=== PATIENT | female | born 1995 | race African-American/Black ===

== ENCOUNTER 2022-05-15 16:54 | Emergency (ER) | payer SELFPAY ==
[2022-05-15 17:27] VITALS: BP 119/68; PULSE 100; RESP 18; TEMP 36.3; O2SAT 100; BMI 50.1
== END 2022-05-15 20:10 | disposition left against medical advice (07) ==
LOC: ED 20:21
DX: Z53.21 Procedure and treatment not carried out due to patient leaving prior to being seen by health care provider (principal)
CPT/HCPCS: 99281

== ENCOUNTER 2022-06-19 08:48 | Emergency (ER) | payer SELFPAY ==
[2022-06-19 08:54] VITALS: BP 120/79; PULSE 81; RESP 18; TEMP 36.6; O2SAT 98; BMI 50.1
--- NOTE | 2022-06-19 09:20 | ED.GENADULT ---
HPI - General Adult General Chief complaint: Unspecified Complaint, Adult Stated complaint: nausea,vomiting,chills,coughing Time Seen by Provider: 06/19/22 09:17 History of Present Illness HPI narrative: This 26-year-old female comes in reporting symptoms that began a couple days ago. She said it was started with nausea and vomiting and some chills. She did not measure a fever. Yesterday she developed nasal congestion and a cough. She comes in stating that she wants to be tested for COVID and influenza and also for possibility of . Related Data Home Medications Medication Instructions Recorded Confirmed No Known Home Medications 05/15/22 05/15/22 Allergies Allergy/AdvReac Type Severity Reaction Status Date / Time shellfish derived Allergy Anaphylaxis Verified 05/15/22 17:32 Review of Systems Status of ROS: Reports: 10 or more systems reviewed and unremarkable except as noted in History and below Narrative: Constitutional: No fevers, no weight gain or loss. Eyes: No discharge. No vision changes. HENT: No congestion, no sore throat, no ear pain. Cardiovascular: No chest pain, no palpitations. Respiratory: No shortness of breath, no wheezes. Nasal congestion and cough. Gastrointestinal: No abdominal pain, no diarrhea. She has had some nausea with vomiting starting a couple days ago and occurring yet today. Genitourinary: No dysuria, no hematuria. Musculoskeletal: Normal range of motion. Skin: No rashes, no pruritis. Neurological: No dizziness, weakness, sensory change, speech change. Endo/Heme/Allergies: No bruising or bleeding. No polydipsia. Pysch: no suicidality, no anxiety, no insomnia. All other systems reviewed and are negative. PFSH [facility] Social History Smoking Status: Unknown if ever smoked Do you use any of these nicotine containing products: None How often do you have a drink containing alcohol: never AUDIT-C Alcohol total score: 0 Non-prescribed substance use: denies use Exam Narrative: Exam Narrative: Constitutional: Well-developed, well-nourished, no acute distress. HEENT: Normocephalic, atraumatic. Neck: Normal range of motion. Nontender. Supple. Heart: Regular. No murmurs. Normal rate. Intact distal pulses. Lungs: Clear to auscultation. No chest discomfort. No wheezes, rhonchi, or rales. Abdomen: Normal bowel sounds. Nontender. No rebound tenderness. Genitalia: Deferred. Back: No midline tenderness. Normal range of motion. Extremities: Normal range of motion. No injury. Skin: Intact. No rash. Warm. No erythema or pallor. Neurologic: No altered sensation. No weakness. Alert and oriented. Psychiatric: No suicidality. No anxiety or depression. No insomnia. Nursing notes and vitals signs are reviewed. Const: Vital Signs, click to edit/add: Vital Signs - 24 hr 06/19/22 08:54 Temperature 97.8 F Pulse Rate [Right Pulse Oximeter] 81 Respiratory Rate 18 Blood Pressure [Ri ght Upper Arm] 120/79 Pulse Oximetry 98 Oxygen Delivery Me thod Room Air Course Vital Signs Vital signs: Initial Vital Signs Temperature 97.8 F 06/19/22 08:54 Temperature Source Temporal Artery Scan 06/19/22 08:54 Pulse Rate 81 06/19/22 08:54 Respiratory Rate 18 06/19/22 08:54 Blood Pressure 120/79 06/19/22 08:54 Blood Pressure Mean 92 06/19/22 08:54 Blood Pressure Position Sitting 06/19/22 08:54 Pulse Oximetry 98 06/19/22 08:54 Oxygen Delivery Method 06/19/22 08:54 Vital Signs Temperature 97.8 F 06/19/22 08:54 Pulse Rate 81 06/19/22 08:54 Respiratory Rate 18 06/19/22 08:54 Blood Pressure 120/79 06/19/22 08:54 Pulse Oximetry 98 06/19/22 08:54 Oxygen Delivery Method 06/19/22 08:54 Temperature 97.8 F 06/19/22 08:54 Pulse Rate 81 06/19/22 08:54 Respiratory Rate 18 06/19/22 08:54 Blood Pressure 120/79 06/19/22 08:54 Pulse Oximetry 98 06/19/22 08:54 Oxygen Delivery Method 06/19/22 08:54 Medical Decision Making MDM Narrative Medical decision making narrative: This patient comes in with symptoms including nausea and vomiting and now has nasal congestion and occasional cough. Her urine test is negative. COVID and influenza testings also returned with negative results. This patient likely has some viral syndrome. Her vital signs are in normal range. I encouraged her to use [id number] medicines as needed and directed. Lab Data Labs: Lab Results 06/19/22 06/19/22 Range/Units 09:07 09:15 HCG, Qual Negative (Negative) SARS-CoV-2 (PCR) Negative SARS-CoV-2 (Negative) Influenza Type A (PCR) Negative PCR FLU A (Negative) Influenza Type B (PCR) Negative PCR FLU B (Negative) Discharge Plan Discharge Clinical Impression: Upper respiratory infection, viral Patient Disposition: Home, Self-Care Condition: Stable Additional Instructions: Use [id number] medicines as needed and directed. Follow up with MD or return if worsening symptoms occur. Prescriptions: No Action No Known Home Medications Follow Up/Referrals: Provider,Not a Local [Primary Care Provider] - Stand Alone Forms: [employer] Info Instructions
[2022-06-19] MEDS: ONDANSETRON ODT 4 MG TAB PO (09:35)
[2022-06-19 09:37] LABS: HCG Qualitative* Negative (Negative)
[2022-06-19 09:59] LABS: PCR FLU A Negative PCR FLU A (Negative); PCR FLU B Negative PCR FLU B (Negative); SARS PCR* Negative SARS-CoV-2 (Negative)
== END 2022-06-19 10:38 | disposition home or self-care (01) ==
PROVIDERS: Emergency Provider Emergency Medicine Emergency Medical Services
DX: J06.9 Acute upper respiratory infection, unspecified (principal)
CPT/HCPCS: 84703; 87631; 99283; 99284; A9270

== ENCOUNTER 2022-09-28 05:24 | Emergency (ER) | payer BC, SELFPAY ==
[2022-09-28 05:29] VITALS: BP 136/88; PULSE 83; RESP 18; TEMP 36.1; O2SAT 99; BMI 48.8
--- NOTE | 2022-09-28 05:34 | ED.GENADULT ---
HPI - General Adult General Time Seen by Provider: 05:34 Date Seen: 09/28/22 Chief complaint: Unspecified Complaint, Adult Stated complaint: Rectal pain Time Seen by Provider: 09/28/22 05:29 Source: patient and RN notes reviewed Mode of arrival: ambulatory Limitations: no limitations History of Present Illness HPI narrative: 19-year-old female who comes in today with concern for a painful hemorrhoid. She has had this for couple of days. No bleeding, she has not taken any medication or tried Sitz baths or topical creams or suppositories for this. She has been constipated but denies abdominal pain, nausea, vomiting. She is also concerned about a yeast infection, she has had these before. Vaginal itching discharge Related Data Previous Rx's Medication Instructions Recorded docusate sodium 100 mg capsule 100 mg PO BID #10 caps 09/28/22 (Colace) fluconazole 150 mg tablet 150 mg PO Q3D 2 doses #2 tabs 09/28/22 (Diflucan) lidocaine 5 %-phenylephrine 0.25 1 applic topical TID PRN #28 grams 09/28/22 %-glycern 14.4 %-petrolatm 15 % cream (Preparation H Rapid Relief-Lidocaine) Allergies Allergy/AdvReac Type Severity Reaction Status Date / Time shellfish derived Allergy Anaphylaxis Verified 05/15/22 17:32 Review of Systems Status of ROS: Reports: 10 or more systems reviewed and unremarkable except as noted in History and below PFSH PFSH Social History Smoking Status: Unknown if ever smoked Do you use any of these nicotine containing products: None How often do you have a drink containing alcohol: never AUDIT-C Alcohol total score: 0 Non-prescribed substance use: denies use Exam Narrative: Exam Narrative: General: well nourished , NAD Head: Atraumatic and normocephalic ENT: External ears and external nose are normal Eyes: Conjunctiva clear, pupils are equal reactive, external ocular motions are intact Neck: Full spontaneous range of motion of the neck Lungs: No respiratory distress Musculoskeletal: No tenderness or deformity Neurologic: No gross focal neurologic deficits Skin: No rashes Psych: Mood and affect are appropriate Rectal: Non thrombosed tender hemorrhoid on the left side of the rectum, no bleeding Const: Vital Signs, click to edit/add: Vital Signs - 24 hr 09/28/22 05:29 Temperature 97.0 F L Pulse Rate [Pulse Oximeter] 83 Respiratory Rate 18 Blood Pressure [Le ft Upper Arm] 136/88 Pulse Oximetry 99 Oxygen Delivery Me thod Room Air Course Course Hospital Course: 5:40 a.m. patient seen and examined. Prior records reviewed. Patient presents with a painful external hemorrhoid. No surrounding erythema or induration to suggest perianal abscess or deeper infection. Considered x-ray or CT for evaluation for other intra-abdominal pathology but no abdominal pain, no vomiting, no indication of obstruction. Patient was started on stool softener, Preparation-H. Also complains of vaginal discharge and has had yeast infections in the past, Diflucan prescribed. Vital Signs Vital signs: Initial Vital Signs Temperature 97.0 F L 09/28/22 05:29 Temperature Source Temporal Artery Scan 09/28/22 05:29 Pulse Rate 83 09/28/22 05:29 Respiratory Rate 18 09/28/22 05:29 Blood Pressure 136/88 09/28/22 05:29 Blood Pressure Mean 104 09/28/22 05:29 Pulse Oximetry 99 09/28/22 05:29 Oxygen Delivery Method 09/28/22 05:29 Vital Signs Temperature 97.0 F L 09/28/22 05:29 Pulse Rate 83 09/28/22 05:29 Respiratory Rate 18 09/28/22 05:29 Blood Pressure 136/88 09/28/22 05:29 Pulse Oximetry 99 09/28/22 05:29 Oxygen Delivery Method 09/28/22 05:29 Temperature 97.0 F L 09/28/22 05:29 Pulse Rate 83 09/28/22 05:29 Respiratory Rate 18 09/28/22 05:29 Blood Pressure 136/88 09/28/22 05:29 Pulse Oximetry 99 09/28/22 05:29 Oxygen Delivery Method 09/28/22 05:29 Medical Decision Making Medical Records Medical records reviewed: Yes I reviewed the patient's medical records Lab Data Lab results reviewed: Yes I reviewed the patient's lab results Discharge Plan Discharge Clinical Impression: Dari vaginitis, External hemorrhoid Patient Disposition: Home, Self-Care Condition: Stable Instructions: Hemorrhoids (DC) Activity Level: No Restrictions Discharge Diet: Regular Prescriptions: New docusate sodium [Colace] 100 mg capsule 100 mg PO BID Qty: 10 0RF Preparation H Rapid Rlf-Lidocn 5-0.25-14.4-15 % cream 1 applic topical TID PRNQty: 28 0RF fluconazole [Diflucan] 150 mg tablet 150 mg PO Q3D Qty: 2 0RF Follow Up/Referrals: Provider,Not a Local [Primary Care Provider] - Stand Alone Forms: [employer] Info Instructions
--- NOTE | 2022-09-28 05:45 | ED.NURSE ---
Chaperoned MD while MD was completing rectal exam. Patient tolerated well.
== END 2022-09-28 06:00 | disposition home or self-care (01) ==
LOC: ED 05:51
PROVIDERS: Emergency Provider Family Medicine
DX: K64.4 Residual hemorrhoidal skin tags (principal); B37.31 Acute candidiasis of vulva and vagina
CPT/HCPCS: 99283

== ENCOUNTER 2023-08-05 16:00 | Outpatient (CLI) | payer BC, SELFPAY | END 2023-08-05 16:01 | disposition home or self-care (01) | LOC: AMB 08-06 00:38 | PROVIDERS: Visit Provider Family Medicine | DX: M54.9 Dorsalgia, unspecified (principal) | CPT/HCPCS: A0425; A0429 ==

== ENCOUNTER 2023-08-05 16:28 | Emergency (ER) | payer BC, SELFPAY ==
[2023-08-05 16:33] VITALS: BP 137/85; PULSE 94; RESP 20; TEMP 36.6; O2SAT 100; BMI 49.6
[2023-08-05 16:36] VITALS: O2SAT 97
--- NOTE | 2023-08-05 16:55 | ED_ITS ---
HPI - General Adult General Chief complaint: Back Injury/Pain Stated complaint: back pain Time Seen by Provider: 08/05/23 16:34 Source: patient Mode of arrival: EMS Limitations: no limitations History of Present Illness HPI narrative: 28-year-old female, with a history of chronic back pain for which she takes an occasional muscle relaxer, presents today with acute low back pain. Patient states that around 9:00 a.m. today which, which is approximately 8 hours ago, she started developing low back discomfort while she was cleaning her house. Around noon she went to get gas for her car and when she was waiting in line to pain she had acute severe low back pain come on all of a sudden. She had to grab a nearby table and wait a couple minutes for the pain to pass. She was able to get to her car and get home. Has some ends she got home she had another attack of pain and she dropped to the ground. She states that pain was so bad that she was unable to get up. Therefore, EMS was called. Patient states the pain continues to be unbearable. She states that any movement makes the pain worse. Pain is located in the center of the lower back and radiates down both legs circumferentially. She has never had pain quite this bad before. Patient denies any fevers, chills, nausea, vomiting. She denies any loss of bowel or bladder function. She denies the inability to move her extremities, she can move them but it causes her pain. Related Data Previous Rx's Medication Instructions Recorded lidocaine 5 %-phenylephrine 0.25 1 applic topical TID PRN #28 grams 09/28/22 %-glycern 14.4 %-petrolatm 15 % cream (Preparation H Rapid Relief-Lidocaine) diazepam 5 mg tablet (Valium) 5 mg PO BID PRN #5 tabs 08/05/23 methocarbamol 750 mg tablet 750 mg PO QID PRN #10 tabs 08/05/23 Allergies Allergy/AdvReac Type Severity Reaction Status Date / Time shellfish derived Allergy Anaphylaxis Verified 03/28/23 13:05 Review of Systems Status of ROS: Reports: 10 or more systems reviewed and unremarkable except as noted in History and below PFSH PFSH Social History Smoking Status: Never smoker Do you use any of these nicotine containing products: None How often do you have a drink containing alcohol: never How often do you have six or more drinks on one occasion: Never AUDIT-C Alcohol total score: 0 Non-prescribed substance use: denies use service: No Exam Narrative: Exam Narrative: Obese, well-developed patient , very tearful Alert and oriented x3. Answers questions appropriately. Patient speaks in full sentences without needing to catch her breath. Patient is lying flat on her back. HEENT: Normocephalic atraumatic. Pupils are equally round reactive to light. Extraocular muscles are intact. Conjunctivae are moist without any icterus noted. Moist mucous membranes. Neck is soft. Cardiovascular: Heart is regular rate and rhythm S1 and S2 are present without any murmurs. Lungs: Clear to auscultation bilaterally no wheezes rhonchi or rales are appreciated. Patient takes deep breaths without any discomfort. Abdomen: Soft and nontender nondistended with normal bowel sounds. Extremities: Bilateral lower extremities are without edema. Normal DP and PT pulses. Skin: Well perfused without any obvious rashes. Patient can move her ankles against resistance and wiggle her feet. Reflexes are 2+ and symmetric at the knees. She cannot elevate her legs above the bed secondary to pain in her lower back. She attempts to bend at both knees and starts to cry. She starts to yell with any passive motion of her lower legs. Patient cannot roll over. Due to her size, I cannot assess her back. Const: Vital Signs, click to edit/add: Vital Signs - 24 hr 08/05/23 16:33 08/05/23 16:36 Temperature 97.8 F Pulse Rate [Right Pulse Oximeter] 94 Respiratory Rate 20 Blood Pressure [Ri ght Upper Arm] 137/85 Pulse Oximetry 100 97 Oxygen Delivery Me thod Room Air Course Course ED Course: IV is established and patient is given Toradol and Dilaudid. This helped a little bit but did not alleviate her pain completely. Patient is quite concerned something else going on she requested an x-ray. We discussed an x-ray likely would not show any abnormalities, however patient and significant o ther insisted. Before this could be done I did give her a dose of 5 mg of IV Valium. Lumbar x-ray was done, read by me, does not show any acute abnormalities. Patient was feeling some relief after Valium. Vital Signs Vital signs: Initial Vital Signs Temperature 97.8 F 08/05/23 16:33 Temperature Source Temporal Artery Scan 08/05/23 16:33 Pulse Rate 94 08/05/23 16:33 Respiratory Rate 20 08/05/23 16:33 Blood Pressure 137/85 08/05/23 16:33 Blood Pressure Mean 102 08/05/23 16:33 Blood Pressure Position Supine 08/05/23 16:33 Pulse Oximetry 100 08/05/23 16:33 Oxygen Delivery Method Room Air 08/05/23 16:33 Vital Signs Temperature 97.8 F 08/05/23 16:33 Pulse Rate 94 08/05/23 16:33 Respiratory Rate 20 08/05/23 16:33 Blood Pressure 137/85 08/05/23 16:33 Pulse Oximetry 100 08/05/23 16:33 Oxygen Delivery Method Room Air 08/05/23 16:33 Temperature 97.8 F 08/05/23 16:33 Pulse Rate 94 08/05/23 16:33 Respiratory Rate 20 08/05/23 16:33 Blood Pressure 137/85 08/05/23 16:33 Pulse Oximetry 97 08/05/23 16:36 Oxygen Delivery Method Room Air 08/05/23 16:33 Medications Administered Medications: Discontinued Medications Generic Name Dose Route Start Last Admin Trade Name Jason PRN Reason Stop Dose Admin Diazepam 5 mg 08/05/23 17:46 08/05/23 17:58 Diazepam 5 Mg/Ml Inj IV 08/05/23 17:47 5 mg ONCE ONE Administration Diazepam 5 mg 08/05/23 18:47 08/05/23 18:54 Diazepam 5 Mg Tablet PO 08/05/23 18:48 Not Given ONCE ONE Hydromorphone HCl 0.5 mg 08/05/23 16:47 08/05/23 17:06 Hydromorphone 0.5 Mg/0.5 Ml Inj IVP 08/05/23 16:48 0.5 mg ONCE ONE Administration Ketorolac Tromethamine 30 mg 08/05/23 16:47 08/05/23 17:06 Ketorolac 30 Mg/Ml Inj IVP 08/05/23 16:48 30 mg ONCE ONE Administration Medical Decision Making MDM Narrative Medical decision making narrative: 24-year-old female with low back pain and muscle spasms. We discussed rest, heat, gentle movement throughout the day. Will send her home with 5 tablets of Valium and methocarbamol, which is what she takes at home. Follow-up as needed. Imaging Data Lumbar x-ray: Attestation: I have reviewed the pertinent imaging results. Radiologist's impression: Lumbar spine 3 view. COMPARISON: None. FINDINGS: Bones: Alignment is normal. No fractures or significant bone lesions. Joints: Disc spaces and facets are unremarkable. Soft tissues: Unremarkable. Discharge Plan Discharge Clinical Impression: Low back pain, Muscle spasm Patient Disposition: Home, Self-Care Condition: Improved Instructions: Acute Low Back Pain (ED) Additional Instructions: Recommend gentle movement throughout the day. Use a heating pad to the low back, do not apply heat directly to skin. Use medications as needed/as directed. Follow-up with your primary care provider as needed. Methocarbamol sent to pharmacy, Valium 5 tablets given as handwritten prescription. Prescriptions: New methocarbamol 750 mg tablet 750 mg PO QID PRNQty: 10 0RF diazepam [Valium] 5 mg tablet 5 mg PO BID PRNQty: 5 0RF No Action Preparation H Rapid Rlf-Lidocn 5-0.25-14.4-15 % cream 1 applic topical TID PRNQty: 28 0RF Follow Up/Referrals: Provider,Not a Local [Primary Care Provider] - Stand Alone Forms: [employer] Info Instructions
[2023-08-05] MEDS: HYDROmorphone 0.5 mg/0.5 ml inj IVP (17:06)
[2023-08-05] MEDS: KETOROLAC 30 MG/ML inj IVP (17:06)
--- NOTE | 2023-08-05 17:44 | CRLHL7_ITS ---
For Patients: As a result of the Cures Act, medical imaging exams and procedure reports are released immediately into your electronic medical record. You may view this report before your referring provider. If you have questions, please contact your health care provider. INDICATION: Pain. TECHNIQUE: Lumbar spine 3 view. COMPARISON: None. FINDINGS: Bones: Alignment is normal. No fractures or significant bone lesions. Joints: Disc spaces and facets are unremarkable. Soft tissues: Unremarkable. Dictated by Tim Shoemaker MD @ 08/05/2023 6:25:39 PM (Electronically Signed)
[2023-08-05] MEDS: diazePAM 5 MG/ML inj IV (17:58)
== END 2023-08-05 20:08 | disposition home or self-care (01) ==
PROVIDERS: Emergency Provider Family Medicine
DX: M54.50 Low back pain, unspecified (principal); M62.830 Muscle spasm of back
CPT/HCPCS: 72100; 94761; 96374; 96375; 99284; J1170; J1885; J3360

== ENCOUNTER 2023-09-21 14:15 | Outpatient (RCR) | payer BC, SELFPAY | END 2023-09-21 15:46 | disposition home or self-care (01) | PROVIDERS: Visit Provider Family Medicine | DX: M54.50 Low back pain, unspecified (principal); S39.012A Strain of muscle, fascia and tendon of lower back, initial encounter; R26.2 Difficulty in walking, not elsewhere classified; Z51.89 Encounter for other specified aftercare | CPT/HCPCS: 97110; 97140; 97162; 97530 ==

== ENCOUNTER 2023-12-30 06:38 | Emergency (ER) | payer BC, SELFPAY ==
[2023-12-30 06:50] VITALS: BP 115/70; PULSE 90; RESP 28; TEMP 36.9; O2SAT 99; BMI 51.4
--- NOTE | 2023-12-30 07:27 | XR_ITS ---
Patient: FAHAD TOMAS Facility:?[facility] Patient ID:?[id number] Site Patient ID:?[id number]. Site :?[id number] Study:?XRay-Chest 2V-12/30/2023 8:06:59 AM Ordering Physician:FRANCK Final Report: INDICATION: Dyspnea. COMPARISON: None available. TECHNIQUE: 2 views. FINDINGS: Medical Devices: None. Lung Volumes: Adequate inspiration. No significant atelectasis. Lungs: Clear lungs. Pleura and Pleural spaces: No significant pleural effusion. No pneumothorax. Mediastinum: Normal cardiomediastinal silhouette. Bony Thorax and Soft Tissues: No significant incidental findings. IMPRESSION: Normal study. Dictated by Jaspal Thomas MD @ 12/30/2023 8:15:19 AM Signed by:?Jaspal Thomas MD @12/30/2023 8:15:19 AM (Electronic Signature)
--- NOTE | 2023-12-30 07:27 | US_ITS ---
Patient: FAHAD TOMAS Facility:?[facility] Patient ID:?[id number] Site Patient ID:?[id number]. Site :?[id number] Study:?US-Extremity Right LEV-12/30/2023 8:05:34 AM Ordering Physician:TOMASA BOSS Final Report: INDICATION: RIGHT LEG PAIN AND SWELLING, FAMILY HISTORY OF BLOOD CLOTS TECHNIQUE: Ultrasound venous duplex lower right extremity. Compression venous exam was performed using simpson-scale, color Doppler, and spectral Doppler analysis. COMPARISON: None. FINDINGS: Deep veins: Sonographic imaging demonstrates the right common femoral, deep femoral, superficial femoral, popliteal, posterior tibial and the contralateral right common femoral veins to be fully compressible with normal color Doppler blood flow. Superficial veins: Greater saphenous vein is fully compressible. No popliteal cyst. IMPRESSION: Normal right lower extremity venous ultrasound, no sign of deep venous thrombosis. Dictated by Leonardo Kaur MD @ 12/30/2023 9:01:59 AM Signed by:?Leonardo Kaur MD @12/30/2023 9:01:59 AM (Electronic Signature)
--- NOTE | 2023-12-30 07:30 | ED_ITS ---
HPI - General Adult General Chief complaint: Chest Pain <Susanne James MD - Last Filed: 12/31/23 01:11> Stated complaint: Chest pain, short of breath <Susanne James MD - Last Filed: 12/31/23 01:11> Time Seen by Provider: 12/30/23 07:13 <Susanne James MD - Last Filed: 12/31/23 01:11> Source: patient <Susanne James MD - Last Filed: 12/31/23 01:11> Mode of arrival: ambulatory <Susanne James MD - Last Filed: 12/31/23 01:11> Limitations: no limitations <Susanne James MD - Last Filed: 12/31/23 01:11> History of Present Illness HPI narrative: 28-year-old female presents to the emergency department for evaluation of shortness of breath chest and right leg pain. Chest pain started yesterday, worse with cough. It is accompanied by headache. Recent exposure to father a few weeks ago who had pneumonia. Patient had an outpatient COVID test that was negative 2 days ago. Cough for the past 2 days with malaise. Shortness of breath started yesterday, intermittent leg pain for the past 3 days. She has no personal history of heart disease. She has no personal history of DVT or PE but reports that her mother has a history of blood clots. Reports that she took some Tylenol that helps with the headache she has also been trying Robitussin, DayQuil and NyQuil with no significant improvement. She also has some mild back pain which is an ongoing issue, using a prescription muscle relaxant for this but she cannot remember which 1. Review of the records shows that she has previously been given some methocarbamol here in the emergency department. She has an IUD for contraception. No history of chronic lung disease or asthma. Positive chills but no fever. No productive cough, hemoptysis. No GI symptoms, diarrhea, vomiting. Past medical history benign per her report, no major long-term health problems. Only home med that she regularly uses the Mirena IUD. Rare use of the prescription muscle relaxant. States that she occasionally smokes, no recent ingestion. ROS notable for the headache, chills, respiratory, leg and chest symptoms as described above. Otherwise denies times 12 systems. <Susanne James MD - Last Filed: 12/31/23 01:11> Related Data Home medications: Home Medications Medication Instructions Recorded Confirmed IUD 12/30/23 Previous Rx's Medication Instructions Recorded lidocaine 5 %-phenylephrine 0.25 1 applic topical TID PRN #28 grams 09/28/22 %-glycern 14.4 %-petrolatm 15 % cream (Preparation H Rapid Relief-Lidocaine) diazepam 5 mg tablet (Valium) 5 mg PO BID PRN #5 tabs 08/05/23 methocarbamol 750 mg tablet 750 mg PO QID PRN #10 tabs 08/05/23 <Susanne James MD - Last Filed: 12/31/23 01:11> Allergies/adverse reactions: Allergies Allergy/AdvReac Type Severity Reaction Status Date / Time iodine Allergy Unknown Verified 12/30/23 06:50 shellfish derived Allergy Anaphylaxis Verified 12/30/23 06:50 <Susanne James MD - Last Filed: 12/31/23 01:11> [facility] Social History: Social History Smoking Status: Never smoker Do you use any of these nicotine containing products: None How often do you have a drink containing alcohol: never How often do you have six or more drinks on one occasion: Never AUDIT-C Alcohol total score: 0 Non-prescribed substance use: denies use service: No <Susanne James MD - Last Filed: 12/31/23 01:11> Exam Const: Vital Signs, click to edit/add: Vital Signs - 24 hr 12/30/23 06:50 12/30/23 07:32 Temperature 98.5 F Pulse Rate [Pulse Oximeter] 90 Respiratory Rate 28 H Blood Pressure [Ri ght Upper Arm] 115/70 Pulse Oximetry 99 97 Oxygen Delivery Me thod Room Air <Susanne James MD - Last Filed: 12/31/23 01:11> Vital Signs, click to edit/add: Vital Signs - 24 hr 12/30/23 06:50 12/30/23 07:32 Temperature 98.5 F Pulse Rate [Pulse Oximeter] 90 Respiratory Rate 28 H Blood Pressure [[facility] Upper Arm] 115/70 Pulse Oximetry 99 97 Oxygen Delivery Me thod Room Air <Storm Haines MD - Last Filed: 12/30/23 09:02> Documenting provider has reviewed patient's vital signs: yes <Susanne James MD - Last Filed: 12/31/23 01:11> Other: Very polite but visibly tachypneic. No audible wheeze. Can speak in full sentences. Appears well nourished, well hydrated. Morbidly obese. <Susanne James MD - Last Filed: 12/31/23 01:11> HENMT: Common normals: normocephalic, moist oral mucous membranes, oropharynx normal and dentition normal <MD Con Leung Last Filed: 12/31/23 01:11> Head and scalp: normocephalic <Susanne James MD - Last Filed: 12/31/23 01:11> Eye: Common normals: conjunctivae normal <Susanne James MD - Last Filed: 12/31/23 01:11> General eye: normal appearance of both eyes <Susanne James MD - Last Filed: 12/31/23 01:11> Conjunctiva: conjunctiva(e) normal <MD Con Leung Last Filed: 12/31/23 01:11> Neck & C-Spine: Common normals: full ROM and no lymphadenopathy <Susanne James MD - Last Filed: 12/31/23 01:11> Other: Difficult to visualize neck veins due to body habitus <Susanne James MD - Last Filed: 12/31/23 01:11> Resp: Other: Breath sounds are really decreased due to body habitus, it is a difficult exam. I do not hear any obvious wheeze and there is certainly no prolongation of expiration. No crackles. <Susanne James MD - Last Filed: 12/31/23 01:11> Cardio: Common normals: regular rate, regular rhythm, S1 normal heart sound, S2 normal heart sound and no murmurs <MD Con Leung Last Filed: 12/31/23 01:11> Rate: regular rate <MD Con Leung Last Filed: 12/31/23 01:11> Rhythm: regular rhythm <MD Con Leung Last Filed: 12/31/23 01:11> Heart sounds: S1 normal and S2 normal <MD Con Leung Last Filed: 12/31/23 01:11> GI: Common normals: Normal to inspection, nondistended, normoactive bowel sounds present, soft to palpation, non-tender, no hepatosplenomegaly and no masses <MD Con Leung Last Filed: 12/31/23 01:11> Palpation: soft and no hepatosplenomegaly <MD Con Leung Last Filed: 12/31/23 01:11> Extremity: Other: Right leg is very mildly more swollen than the other. She seems more tender with palpation of the hamstring and calf than necessarily a typical Homans sign but I can not really distinguish any palpable cords because of her body habitus. <MD Con Leung Last Filed: 12/31/23 01:11> Neuro: Motor exam: no tremor noted and no movement abnormalities noted <MD Con Leung Last Filed: 12/31/23 01:11> Psych: Common normals: speech normal <MD Con Leung Last Filed: 12/31/23 01:11> Attitude: engaged <MD Con Leung Last Filed: 12/31/23 01:11> Activity/motor behavior: appropriate eye contact <MD Con Leung Last Filed: 12/31/23 01:11> Speech: normal speech <MD Con Leung Last Filed: 12/31/23 01:11> Insight: insight good <MD Con Leung Last Filed: 12/31/23 01:11> Judgement: judgment good <MD Con Leung Last Filed: 12/31/23 01:11> Skin: Common normals: no rashes or lesions noted <Susanne James MD - Last Filed: 12/31/23 01:11> General skin exam: no rashes or lesions noted <Susanne James MD - Last Filed: 12/31/23 01:11> Course Course ED Course: Tachypnea with reported dyspnea, cough and family history of blood clots. Differential diagnosis including DVT/PE, pneumonia, bronchitis, asthma, other upper respiratory infection, acute cardiac process, heart failure, arrhythmia, musculoskeletal etiology, among others. Begin with flu/COVID test, chest x-ray, typical labs including D-dimer, BN P, troponins. EKG. Initial O2 sats are reas suring, not tachycardic but pulse is high end of normal. I am going to wait on any treatments until I have some direction on lab findings. I would like to go ahead and get an ultrasound of the right leg due to her family history and risk factors for DVT. She does have a shellfish allergy. If we decide to do a CT of the chest, will need premedication. <Susanne James MD - Last Filed: 12/31/23 01:11> Vital Signs Vital signs: Initial Vital Signs Temperature 98.5 F 12/30/23 06:50 Temperature Source Temporal Artery Scan 12/30/23 06:50 Pulse Rate 90 12/30/23 06:50 Respiratory Rate 28 H 12/30/23 06:50 Blood Pressure 115/70 12/30/23 06:50 Blood Pressure Mean 85 12/30/23 06:50 Blood Pressure Position Sitting 12/30/23 06:50 Pulse Oximetry 99 12/30/23 06:50 Oxygen Delivery Method Room Air 12/30/23 06:50 Vital Signs Temperature 98.5 F 12/30/23 06:50 Pulse Rate 90 12/30/23 06:50 Respiratory Rate 28 H 12/30/23 06:50 Blood Pressure 115/70 12/30/23 06:50 Pulse Oximetry 99 12/30/23 06:50 Oxygen Delivery Method Room Air 12/30/23 06:50 Temperature 98.5 F 12/30/23 06:50 Pulse Rate 90 12/30/23 06:50 Respiratory Rate 28 H 12/30/23 06:50 Blood Pressure 115/70 12/30/23 06:50 Pulse Oximetry 97 12/30/23 07:32 Oxygen Delivery Method Room Air 12/30/23 06:50 <Susanne James MD - Last Filed: 12/31/23 01:11> Initial Vital Signs Temperature 98.5 F 12/30/23 06:50 Temperature Source Temporal Artery Scan 12/30/23 06:50 Pulse Rate 90 12/30/23 06:50 Respiratory Rate 28 H 12/30/23 06:50 Blood Pressure 115/70 12/30/23 06:50 Blood Pressure Mean 85 12/30/23 06:50 Blood Pressure Position Sitting 12/30/23 06:50 Pulse Oximetry 99 12/30/23 06:50 Oxygen Delivery Method Room Air 12/30/23 06:50 Vital Signs Temperature 98.5 F 12/30/23 06:50 Pulse Rate 90 12/30/23 06:50 Respiratory Rate 28 H 12/30/23 06:50 Blood Pressure 115/70 12/30/23 06:50 Pulse Oximetry 99 12/30/23 06:50 Oxygen Delivery Method Room Air 12/30/23 06:50 Temperature 98.5 F 12/30/23 06:50 Pulse Rate 90 12/30/23 06:50 Respiratory Rate 28 H 12/30/23 06:50 Blood Pressure 115/70 12/30/23 06:50 Pulse Oximetry 97 12/30/23 07:32 Oxygen Delivery Method Room Air 12/30/23 06:50 <Storm Haines MD - Last Filed: 12/30/23 09:02> Medical Decision Making MDM Narrative Medical decision making narrative: Patient is a 28-year-old woman who comes in with shortness of breath. Workup is largely unremarkable with the exception of alkalosis on her blood gas which I do believe to be due to anxiety and hyper ventilation. Her workup is significant for positive influenza B. she has had symptoms for greater than 48 hours notably that she is a candidate for Tamiflu. Troponin is negative D-dimer is negative electrolytes and CBC are negative ultrasound lower extremity is negative. This time I did recommend Tylenol Motrin rest and fluids close follow-up with her primary physician. Differential diagnosis includes but not limited to pulmonary embolism with acute myocardial infarction pneumonia pneumothorax viral syndrome. <Storm Haines MD - Last Filed: 12/30/23 09:02> Lab Data Lab results reviewed: Yes I reviewed the patient's lab results <Susanne James MD - Last Filed: 12/31/23 01:11> Labs: Lab Results 12/30/23 12/30/23 12/30/23 Range/Units 07:00 07:27 07:36 WBC 7.64 (4.50-11.00) K/uL RBC 4.77 (4.00-5.20) m/uL Hgb 13.0 (12.0-16.0) gm/dL Hct 39.7 (33.0-51.0) % MCV 83 (80-100) fL MCH 27 (26-34) pg MCHC 33 (32-36) gm/dL RDW Coeff of Chana 14.0 (11.5-15.5) % Plt Count 280 (140-440) K/uL Neut % (Auto) 70.0 (42.0-72.0) % Lymph % (Auto) 15.7 L (20-44) % Hall % (Auto) 11.9 H (0.0-11.0) % Eos % (Auto) 1.6 (0.0-7.0) % Baso % (Auto) 0.1 (0.0-3.0) % Neut # (Auto) 5.35 (1.7-7.0) K/uL Lymph # (Auto) 1.20 (0.90-2.90) K/uL Hall # (Auto) 0.90 (0.00-0.90) K/UL Eos # (Auto) 0.12 (0.00-0.50) K/uL Baso # (Auto) 0.01 (0.00-0.30) K/uL Abs Immat Gran (auto) 0.05 (0.00-0.30) K/uL Imm/Tot Granulo (auto) 0.7 % D-Dimer Quant (PE/DVT) 0.36 (0.00-0.50) ug/ml VBG pH 7.511 H (7.32-7.43) VBG pCO2 32 L (40-50) mmHG VBG pO2 36.3 (25-47) mmHG VBG HCO3 26 (21-28) mmol/L Sodium 138 (135-149) mmol/L Potassium 3.7 (3.6-5.1) mmol/L Chloride 109 (96-114) mmol/L Carbon Dioxide 25 (20-32) mmol/L Anion Gap 4 L (7-15) mEq/L BUN 8 (5-24) mg/dL Creatinine 0.8 (0.5-1.5) mg/dL Estimated Creat Clear 85.83 Estimated GFR 102 ml/min Glucose 99 (60-115) mg/dL Calcium 9.0 (8.4-10.6) mg/dL Total Bilirubin 0.4 (0.1-1.5) mg/dL AST 27 (12-35) U/L ALT 22 (4-35) U/L Alkaline Phosphatase 69 (40-150) U/L Troponin I < 0.01 L (0.01-0.04) ng/mL C-Reactive Protein 1.5 H (0.5-1.0) mg/dL NT-Pro-B Natriuret Pep < 20 pg/mL Total Protein 8.2 (6.0-8.3) g/dL Albumin 4.4 (3.3-5.0) g/dL HCG, Quant < 2.39 mIU/mL SARS-CoV-2 (PCR) Negative SARS-CoV-2 (Negative) Influenza Type A (PCR) Negative PCR FLU A (Negative) Influenza Type B (PCR) POSITIVE PCR FLU B A (Negative) RSV (PCR) Negative PCR RSV (Negative) POC Troponin I 0.00 L (0.01-0.04) ng/ml <Susanne James MD - Last Filed: 12/31/23 01:11> Lab Results 12/30/23 12/30/23 12/30/23 Range/Units 07:00 07:27 07:36 WBC 7.64 (4.50-11.00) K/uL RBC 4.77 (4.00-5.20) m/uL Hgb 13.0 (12.0-16.0) gm/dL Hct 39.7 (33.0-51.0) % MCV 83 (80-100) fL MCH 27 (26-34) pg MCHC 33 (32-36) gm/dL RDW Coeff of Chana 14.0 (11.5-15.5) % Plt Count 280 (140-440) K/uL Neut % (Auto) 70.0 (42.0-72.0) % Lymph % (Auto) 15.7 L (20-44) % Hall % (Auto) 11.9 H (0.0-11.0) % Eos % (Auto) 1.6 (0.0-7.0) % Baso % (Auto) 0.1 (0.0-3.0) % Neut # (Auto) 5.35 (1.7-7.0) K/uL Lymph # (Auto) 1.20 (0.90-2.90) K/uL Hall # (Auto) 0.90 (0.00-0.90) K/UL Eos # (Auto) 0.12 (0.00-0.50) K/uL Baso # (Auto) 0.01 (0.00-0.30) K/uL Abs Immat Gran (auto) 0.05 (0.00-0.30) K/uL Imm/Tot Granulo (auto) 0.7 % D-Dimer Quant (PE/DVT) 0.36 (0.00-0.50) ug/ml VBG pH 7.511 H (7.32-7.43) VBG pCO2 32 L (40-50) mmHG VBG pO2 36.3 (25-47) mmHG VBG HCO3 26 (21-28) mmol/L Sodium 138 (135-149) mmol/L Potassium 3.7 (3.6-5.1) mmol/L Chloride 109 (96-114) mmol/L Carbon Dioxide 25 (20-32) mmol/L Anion Gap 4 L (7-15) mEq/L BUN 8 (5-24) mg/dL Creatinine 0.8 (0.5-1.5) mg/dL Estimated Creat Clear 85.83 Estimated GFR 102 ml/min Glucose 99 (60-115) mg/dL Calcium 9.0 (8.4-10.6) mg/dL Total Bilirubin 0.4 (0.1-1.5) mg/dL AST 27 (12-35) U/L ALT 22 (4-35) U/L Alkaline Phosphatase 69 (40-150) U/L Troponin I < 0.01 L (0.01-0.04) ng/mL C-Reactive Protein 1.5 H (0.5-1.0) mg/dL NT-Pro-B Natriuret Pep < 20 pg/mL Total Protein 8.2 (6.0-8.3) g/dL Albumin 4.4 (3.3-5.0) g/dL HCG, Quant < 2.39 mIU/mL SARS-CoV-2 (PCR) Negative SARS-CoV-2 (Negative) Influenza Type A (PCR) Negative PCR FLU A (Negative) Influenza Type B (PCR) POSITIVE PCR FLU B A (Negative) RSV (PCR) Negative PCR RSV (Negative) POC Troponin I 0.00 L (0.01-0.04) ng/ml <Storm Haines MD - Last Filed: 12/30/23 09:02> ECG Data Attestation: I personally reviewed and interpreted this ECG as follows: <Susanne James MD - Last Filed: 12/31/23 01:11> Prior ECG tracings: not available for review <Susanne James MD - Last Filed: 12/31/23 01:11> Interpretation: No prior EKG. Today EKG shows normal sinus rhythm, rate of 84. [place] is a little leftward deviated, normal intervals. Some subtle anterior changes which are not diagnostic enough for ischemia but warrant a closer look. No prior EKG for comparison. <Susanne James MD - Last Filed: 12/31/23 01:11> Discharge Plan Discharge Clinical Impression: Influenza B <Susanne James MD - Last Filed: 12/31/23 01:11> Patient Disposition: Home, Self-Care <Susanne James MD - Last Filed: 12/31/23 01:11> Condition: Stable <Susanne James MD - Last Filed: 12/31/23 01:11> Instructions: Influenza (ED) <Susanne James MD - Last Filed: 12/31/23 01:11> Activity Level: No Restrictions <Susanne James MD - Last Filed: 12/31/23 01:11> No Restrictions <Storm Haines MD - Last Filed: 12/30/23 09:02> Discharge Diet: Regular <Susanne James MD - Last Filed: 12/31/23 01:11> Regular <Storm Haines MD - Last Filed: 12/30/23 09:02> Prescriptions: No Action Preparation H Rapid Rlf-Lidocn 5-0.25-14.4-15 % cream 1 applic topical TID PRNQty: 28 0RF methocarbamol 750 mg tablet 750 mg PO QID PRNQty: 10 0RF diazepam [Valium] 5 mg tablet 5 mg PO BID PRNQty: 5 0RF IUD <Susanne James MD - Last Filed: 12/31/23 01:11> Follow Up/Referrals: Provider,Not a Local [Referring] - <Susanne James MD - Last Filed: 12/31/23 01:11> Stand Alone Forms: MyHealth Info Instructions <Susanne James MD - Last Filed: 12/31/23 01:11>
[2023-12-30 07:32] VITALS: O2SAT 97
[2023-12-30 07:44] LABS: HCO3 VBG 26 mmol/L (21-28); PCO2 VBG 32 mmHG (40-50); PO2 VBG 36.3 mmHG (25-47); pH VBG 7.511 (7.32-7.43)
[2023-12-30 07:45] LABS: Basophils Absolute Auto 0.01 K/uL (0.00-0.30); Basophils Percent Auto 0.1 % (0.0-3.0); Eosinophils Absolute Auto 0.12 K/uL (0.00-0.50); Eosinophils Percent Auto 1.6 % (0.0-7.0); Hematocrit 39.7 % (33.0-51.0); Immature Granulocytes Abs Auto 0.05 K/uL (0.00-0.30); Immature Granulocytes Pct Auto 0.7 %; Lymphocytes Percent Auto 15.7 % (20-44); Mean Corpuscular HGB Conc 33 gm/dL (32-36); Mean Corpuscular Hemoglobin 27 pg (26-34); Mean Corpuscular Volume 83 fL (80-100); Monocytes Percent Auto 11.9 % (0.0-11.0); Neutrophils Absolute Auto 5.35 K/uL (1.7-7.0); Platelet Count* 280 K/uL (140-440); Red Blood Count 4.77 m/uL (4.00-5.20); White Blood Count* 7.64 K/uL (4.50-11.00)
--- OUTSIDE RECORDS SUMMARY | 2023-12-30 07:47 | XMS_ITS | Clinical Summary ---
Author Name Unknown Organization [facility] s & [facility] Address [place], [place] [address] Care Team Providers Care Scrap Carrier Name Role Phone Trinity Joseph DO Primary Care Provider [phone] Allergies Active Allergy Reactions Criticality Noted Date Comments Iodine Hives 08/09/2023 Shellfish Derived Hives 08/09/2023 Medications Medication Sig Dispensed Refills Start Date End Date Status METHOCARBAMOL ORAL Take by mouth once daily. Active levonorgestrel (Mirena) 20 mcg/24 hours (8 yrs) 52 mg intrauterine device (IUD) Inject 1 Device intrauterine one time. Active fluconazole (DIFLUCAN) 150 mg tabletIndications:Y east vaginitis Take 1 Tablet (150 mg) by mouth once daily for 1 day. 1 Tablet 12/21/2023 12/22/2023 Active Problems Problem Noted Date Diagnosed Date Pap smear for cervical cancer screening 09/24/19 Overview: 09/2023 NIL/HPV Negative Plan: Pap and HPV due 09/2028 IUD (intrauterine device) in place 09/17/2023 Overview: Placed December 2021 in [place] PCOS (polycystic ovarian syndrome) 09/17/2023 Overview: Irregular menses. US with bilateral polycystic ovaries in November 2018. Encounters Date Type Department Care Team Description 12/20/2023 11:45 AM CDT Orders Only [facility] [address] [place] [address] Lab, [place] [facility] 12/20/2023 Travel 12/16/2023 Telephone [facility] [address] [place] [address] Niki Austin PA 12/15/2023 8:56 AM CDT - 12/15/2023 11:59 PM CDT Hospital Encounter [facility] [address] [place] [address] Niki Austin PA Enlarged lymph node in neck 12/15/2023 E-Visit [facility] [address] [place] [address] Trinity Joseph, Yeast infection symptoms 12/15/2023 Travel 12/01/2023 2:30 PM CDT Office Visit [facility] [address] [place] [address] Niki Austin PA Consult ( Enlarged lymph node in neck) 12/01/2023 Travel 10/05/2023 1:00 PM INSURANCE COMPLIANCE ANALYST Ancillary Procedure [facility] [address] [place] [address] 10/05/2023 Travel from Last 3 Months Family History Medical History Relation Name Comments Sleep apnea Brother 1 Diabetes Father Arthritis Mother knee Hypertension Mother Relation Name Status Comments Brother 1 Alive Brother 2 Father Alive Mother Alive Sister Alive Social History Tobacco Use Types Packs/Day Years Used Date Smoking Tobacco: Never Smokeless Tobacco: Never Tobacco Cessation:Counseling Given: Not Answered Alcohol Use Standard Drinks/Week Comments Not Currently 0 (1 standard drink = 0.6 oz pur e alcohol) special occ PHQ-2 Answer Date Recorded PHQ-2 TOTAL SCORE 0 09/17/2023 Social Connections Answer Date Recorded Frequency of Communication with Friends and Fami ly 0 08/09/2023 Financial Resource Strain Answer Date R ecorded Difficulty of Paying Living Expenses 3 08/09/2023 Difficulty of Paying Living Expenses Not on file 08/09/2023 Food Insecurity Answer Date Recorded Worried About Running Out of Food in the Last Ye ar 1 08/09/2023 Transportation Needs Answer Date Record ed Lack of Transportation (Medical) 1 08/09/2023 Housing Stability Answer Date Recorded Unable to Pay for Housing in the Last Year 1 08/09/2023 Sex and Gender Information Value Date Recorded Sex Assigned at Not on file Gender Identity Not on file Sexual Orientation Not on file Obstetrics History Last Filed Vital Signs Vital Sign Reading Time Taken Comments Blood Pressure 134/73 09/17/2023 3:06 PM INSURANCE COMPLIANCE ANALYST Pulse 91 09/17/2023 3:06 PM INSURANCE COMPLIANCE ANALYST Temperature - - Respiratory Rate - - Oxygen Saturation 98% 09/17/2023 3:06 PM INSURANCE COMPLIANCE ANALYST Inhaled Oxygen Concentration - - Weight 134.5 kg (296 lb 9.6 oz) 09/17/2023 3:06 PM INSURANCE COMPLIANCE ANALYST Height 162.6 cm (5' 4) 09/17/2023 3:06 PM INSURANCE COMPLIANCE ANALYST Body Mass Index 50.91 09/17/2023 3:06 PM INSURANCE COMPLIANCE ANALYST Plan of Treatment Upcoming Encounters Date Type Department Care Team (Late st Contact Info) Description 01/18/2024 3:15 PM CDT Office Visit [facility] [address] [place] [phone] [facility]igez [facility] [address] [facility] [address] [place] [address] 04/06/2024 2:30 PM CDT Office Visit [facility] [address] [place] [address] Errol Moran MD [address] [place] [address] Health Maintenance Due Date Last Done Comments Tdap 2005 Tetanus booster 2014 COVID-19 vaccine series ( season) 2023 Influenza for age 9-49 05/14/2024 BMI (ht and wt on same day) for age 18+ 09/17/2024 09/17/2023, 08/09/2023 Depression screening for age 12+ 09/20/2024 09/20/2023, 09/17/2023 Pap test for age 21-65 09/17/2028 , 09/17/2023 HIV for age 15-65 Completed 09/17/2023 Hepatitis C screening for ag e 18-79 Completed 09/17/2023 Pneumococcal series for age 6-64 Aged Out No longer eligible b ased on patient's age to complete this topic Procedures Procedure Name Priority Date/Time Associated Diagnosis Comments TRICHOMONAS, NOLBERTO, AND BACTERIAL VAGINOSIS BY PANKAJ Routine 12/20/2023 10:20 AM CDT Vaginal discharge US FNA BIOPSY W IMAGING GUIDANCE Routine 12/15/2023 10:08 AM CDT Enlarged lymph node in neck PATH FNA CYTOLOGY ASP CYTOLOGY Routine 12/15/2023 9:30 AM CDT Enlarged lymph node in neck US NECK OR HEAD SOFT TISSUE Routine 10/05/2023 1:23 PM INSURANCE COMPLIANCE ANALYST Enlarged lymph node in neck ANTI HIV 1/2 Routine 09/17/2023 4:27 PM INSURANCE COMPLIANCE ANALYST Routine screening for STI (sexually transmitted infection) ANTI HCV Routine 09/17/2023 4:27 PM INSURANCE COMPLIANCE ANALYST Routine screening for STI (sexually transmitted infection) DRY PRESS OPERATOR HELPER THIN PREP PAP SCREEN IMAGED Routine 09/17/2023 3:50 PM INSURANCE COMPLIANCE ANALYST Screening for malignant neoplasm of cervix from Last 3 Months or Most Recently Relevant to Health Maintenance Results * (ABNORMAL) TRICHOMONAS, NOLBERTO, AND BACTERIAL VAGINOSIS BY PANKAJ (12/20/2023 10:20 AM CDT) NOLBERTO SPECIES Positive(A) Negative 12/20/19 8:46 PM CDT [facility] NOLBERTO GLABRATA Negative Negative 12/20/2023 8:46 PM CDT [facility] TRICHOMONAS VVA Negative Negative 8:46 PM CDT [facility] BACTERIAL VAGINOSIS Negative Negative 12/20/2023 8:46 PM CDT [facility] Other VAGINAL SWAB / Unknown Non-Blood / Unknown 12/20/2023 10:20 AM CDT 12/20/2023 10:27 AM CDT Trinity Gardunoxler MICROBIOLOGY [facility] [address] [place] [address], [place] * US FNA BIOPSY W IMAGING GUIDANCE (12/15/2023 10:08 AM CDT) Anatomical Region Laterality Modality Ultrasound, Othe r 12/15/2023 11:2 7 AM CDT Impressions 12/15/2023 11:27 AM CDT Ultrasound-guided FNA sampling of a nodular mass at the margin of the left parotid gland. Dictated by Vera Figueroa MD @ 12/15/2023 11:27:08 AM (Electronically Signed) Narrative 12/15/2023 11:27 AM CDT For Patients: ??As a result of the Cures Act, medical imaging exams and procedure reports are released immediately into your electronic medical record. ??You may view this report before your referring provider. ??If you have questions, please contact your health care provider. Indication : Enlarged lymph node, left neck. TECHNIQUE: Ultrasound-guided FNA of a left neck mass. FINDINGS: The examination and risks were fully explained to the patient. A consent form was signed and a time-out conducted prior to initiating the study. Ultrasound targeted a 1.9 x 1.7 x 1.5 cm slightly hypoechoic solid mass adjacent to the margin of the left parotid gland. Utilizing sterile procedure and 1 percent xylocaine as local anesthesia, 9 FNA samples were obtained with 25-gauge needles and presented to the pathologist for processing. No bleeding at the puncture site or complication. The patient was stable at the termination of the procedure. Procedure Note Tim Figueroa MD - 12/15/2023 For Patients: As a result of the Cures Act, medical imagingexams and procedure reports are released immediately into your electronicmedical record. You may view this report before your referring provider.If you have questions, please contact your health care provider. Indication : Enlarged lymph node, left neck. TECHNIQUE: Ultrasound-guided FNA of a left neck mass. FINDINGS: The examination and risks were fully explained to the patient. A consentform was signed and a time-out conducted prior to initiating the study. Ultrasound targeted a 1.9 x 1.7 x 1.5 cm slightly hypoechoic solid massadjacent to the margin of the left parotid gland. Utilizing sterile procedure and 1 percent xylocaine as local anesthesia, 9FNA samples were obtained with 25-gauge needles and presented to thepathologist for processing. No bleeding at the puncture site or complication. The patient was stableat the termination of the procedure. IMPRESSION: Ultrasound-guided FNA sampling of a nodular mass at the margin of the leftparotid gland. Dictated by Vera Figueroa MD @ 12/15/2023 11:27:08 AM (Electronically Signed) Niki GREENBERG * PATH FNA CYTOLOGY ASP CYTOLOGY (12/15/2023 9:30 AM CDT) Case Report Medical Cytology Report ? Case: [id number] ? Authorizing Provider: ??Niki Austin PA ??Collected: ? 12/15/2023 0930 ? Ordering Location: ? [facility] ?Received: ?12/15/2023 1243 ? Clinic ? Pathologist: ? Yari Patterson MD ? Specimen: ?Left Neck Lymph Node, Please refer any discrepency issue between paper FNA & ? excellian order to Dr. Palacios, pathologist by request of Dr. Palacios -[id number] ? 12/16/2023 1:53 PM T [facility] Final Diagnosis A) SUBMITTED LYMPH NODE, LEFT NECK, ULTRASOUND-GUIDE D FINE-NEEDLE ASPIRATION: 1. Positive for salivary gland neoplasm, favor pleomorphic adenoma 2. No definitive lymphoid tissue in this sampling 3. 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 Radiologic correlation is recommended. Case seen in consultation with Dr. Betts. 12/16/2023 1:53 PM T [facility] Clinical Information 28-year-old with an enlarged left neck lymph node. Patient undergoes biopsy of a 1.9 x 1.7 x 1.5 cm slightly hypoechoic solid mass adjacent to the margin of the left parotid gland. 12/16/2023 1:53 PM T [facility] Gross Description A) Received identified as Left Neck Lymph Node, is a fine needle aspirate specimen. The specimen consists of: ? -8 Air dried slides ? -1 CytoLyt vial ? -1 RPMI vial ? -0 Formalin vials The following were prepared from the specimen submitted: ? -8 Diff-Quik stained slides ? -1 Papanicolaou stained ThinPrep slide ? -0 H&E stained cell block slides 12/16/2023 1:53 PM T [facility] Adequacy Assessment A) Dr. Palacios assessed adequacy from the air-dried smears at the time of the procedure with an impression of: Passes 1-4: No significant lymphoid elements, rare epithelium; request more. Dr. Palacios performed a second assessment from the air-dried smears at the time of the procedure with an impression of: Passes 6-9: Adequate 12/16/2023 1:53 PM CDT [facility] Microscopic Description Specimen adequacy: Adequate for interpretation. All slides were reviewed. The microscopic appearance substantiates the diagnosis. 12/16/2023 1:53 PM CDT [facility] Additional Information Cytology is screened at [facility] - [address], [place] [address] and [facility] - [address], [place] [address] and [facility] - [address] [place] [address] Interpreted at [facility] - [address], [place] [address] 12/16/2023 1:53 PM CDT [facility] Aspirate (Left Neck Lymph Node) Non-Blood / Unknown 12/15/2023 9:30 AM CDT 12/15/2023 12:43 PM CDT Comment:This procedure was o riginally ordered at [facility]. Niki GREENBERG PATHOLOGY/CYTOLO GY [facility] [address] [place] [address], [place] * US NECK OR HEAD SOFT TISSUE (10/05/2023 1:23 PM INSURANCE COMPLIANCE ANALYST) Anatomical Region Laterality Modality NECK Ultrasound 10/05/2023 2:51 PM INSURANCE COMPLIANCE ANALYST Narrative 10/05/2023 2:51 PM INSURANCE COMPLIANCE ANALYST For Patients: ??As a result of the Century Cures Act, medical imaging exams and procedure reports are released immediately into your electronic medical record. ??You may view this report before your referring provider. ??If you have questions, please contact your health care provider. Indication: Lump Technique: Grayscale and color Doppler ultrasound of the left neck performed. Comparison: None Findings: Enlarged left neck lymph node is present with hypoechoic internal echotexture measuring 2.0 x 1.6 x 1.1 cm. Mild internal vascularity noted. Impression: Enlarged left cervical lymph node measuring 2 cm. ENT referral recommended. Dictated by Fuad Avila MD @ Oct 05 2023 ??2:51PM (Electronically Signed) ?? Procedure Note Fuad Avila MD - 10/05/2023 For Patients: As a result of the Cures Act, medical imagingexams and procedure reports are released immediately into your electronicmedical record. You may view this report before your referring provider.If you have questions, please contact your health care provider. Indication: Lump Technique: Grayscale and color Doppler ultrasound of the left neck performed. Comparison: None Findings: Enlarged left neck lymph node is present with hypoechoic internalechotexture measuring 2.0 x 1.6 x 1.1 cm. Mild internal vascularitynoted. Impression: Enlarged left cervical lymph node measuring 2 cm. ENT referralrecommended. Dictated by Fuad Avila MD @ Oct 05 2023 2:51PM (Electronically Signed) Trinity Joseph DO [place] * ANTI HCV (09/17/2023 4:27 PM INSURANCE COMPLIANCE ANALYST) HEPATITIS C ANTIBODY Non-Reacti ve Non-React kraig 09/20/2023 2:00 PM INSURANCE COMPLIANCE ANALYST [facility] Comment:Please note, per www .CDC.gov: If a patient is known to be at high risk of HCV infection, or is symptomatic, and the physician's suspicion of HCV infection is high, HCV RNA testing is often employed and is of diagnostic value, even after an initial negative anti-HCV test result. Blood BLOOD SPECIMEN / Unknown Venipuncture / Unknown 09/17/2023 4:27 PM INSURANCE COMPLIANCE ANALYST 09/17/2023 4:28 PM INSURANCE COMPLIANCE ANALYST Trinity Joseph DO SEND OUTS [facility] [address] [place] [address], [place] * ANTI HIV 1/2 (09/17/2023 4:27 PM INSURANCE COMPLIANCE ANALYST) [facility] HIV-1/HIV-2 SCREEN Non-Reacti ve Non-Reacti ve 09/20/2023 2:00 PM INSURANCE COMPLIANCE ANALYST [facility] Comment:HIV-1 p24 and HIV-1/ HIV-2 Ab Not Detected. Blood BLOOD SPECIMEN / Unknown Venipuncture / Unknown 09/17/2023 4:27 PM INSURANCE COMPLIANCE ANALYST 09/17/2023 4:28 PM INSURANCE COMPLIANCE ANALYST Trinity Joseph DO SEND OUTS [facility] [address] [place] [address], * DRY PRESS OPERATOR HELPER THIN PREP PAP SCREEN IMAGED [[id number]] (09/17/2023 3:50 PM INSURANCE COMPLIANCE ANALYST) [facility] Case Report Gynecologic Cytology Report ? Case: [id number] ? Authorizing Provider: ??Trinity Joseph, ?Collected: ? 09/17/2023 1550 ? Ordering Location: ? [facility] ?? Received: ?09/17/2023 1619 ? Clinic ? First Screen: ?Leta Zuniga ? Specimen: ?DRY PRESS OPERATOR HELPER ThinPrep Vial Screening, Cervical ? 09/22/2023 3:24 PM INSURANCE COMPLIANCE ANALYST [facility] INTERPRETATION/ RESULT NEGATIVE FOR INTRAEPITHELIAL LESION OR MALIGNANCY (NIL) (none) 09/22/2023 3:24 PM INSURANCE COMPLIANCE ANALYST [facility] IMEN ADEQUACY Satisfactory for evaluation Endocervical component present 09/22/2023 3:24 PM INSURANCE COMPLIANCE ANALYST [facility] HPV REQUEST HPV and PAP 09/22/2023 3:24 PM INSURANCE COMPLIANCE ANALYST [facility] Date of LMP N/A 09/22/2023 3:24 PM INSURANCE COMPLIANCE ANALYST [facility] Last Pap Date 201909/22/2023 3:24 PM INSURANCE COMPLIANCE ANALYST [facility] Last Pap Result NIL 3:24 PM INSURANCE COMPLIANCE ANALYST [facility] Abnormal Pap or [place] Bx in last 5 years No 09/22/2023 3:24 PM INSURANCE COMPLIANCE ANALYST [facility] Menstrual Status Hormonally Suppressed 09/22/2023 3:24 PM INSURANCE COMPLIANCE ANALYST [facility] [place] Bx Done Today No 09/22/2023 3:24 PM INSURANCE COMPLIANCE ANALYST [facility] Additional Information None given 09/22/2023 3:24 PM INSURANCE COMPLIANCE ANALYST [facility] Comment: Cytology is screened at [facility] - [address] [place] [address] and [facility] - [address] [place] [address] and [facility] - [address] [place] [address] Interpreted at [facility] - [address], [place] [address] Automated Review Successful 09/22/2023 3:24 PM INSURANCE COMPLIANCE ANALYST [facility] Comment:Specimen processed s uccessfully by automated biofuels product manager device, ThinPrep Imaging System, [employer] ANCILLARY TESTING DRY PRESS OPERATOR HELPER HPV Ordered, Please see separate report 09/22/2023 3:24 PM INSURANCE COMPLIANCE ANALYST [facility] Note The pap test is a screening technique, not a diagnostic procedure. It is used primarily to screen for squamous cancers and precursor lesions. Published studies have shown that it is subject to both false negative and false positive results. The pap test should not be used as the sole means to diagnose or exclude pre-malignant and malignant lesions. 09/22/2023 3:24 PM INSURANCE COMPLIANCE ANALYST [facility] Other (Cervical) Non-Blood / Unknown 09/17/2023 3:50 PM INSURANCE COMPLIANCE ANALYST 09/17/2023 4:19 PM INSURANCE COMPLIANCE ANALYST Trinity Joseph DO PATHOLOGY/CYTOLOGY [facility] [address] [place] [address], from Last 3 Months or Most Recently Relevant to Health Maintenance Care Teams Scrap Carrier Relationship Specialty Start Date End Date Trinity Joseph [place] [address] PCP - General Family Practice 08/09/23
[2023-12-30 07:52] LABS: PCR FLU A Negative PCR FLU A (Negative); PCR FLU B POSITIVE PCR FLU B (Negative); PCR RSV Negative PCR RSV (Negative); SARS PCR* Negative SARS-CoV-2 (Negative)
[2023-12-30 07:53] LABS: Slide Review Reflex No
[2023-12-30 08:00] LABS: Albumin* 4.4 g/dL (3.3-5.0); Chloride* 109 mmol/L (96-114); Sodium* 138 mmol/L (135-149)
[2023-12-30 08:01] LABS: Potassium* 3.7 mmol/L (3.6-5.1)
[2023-12-30 08:03] LABS: Alanine Aminotransferase* 22 U/L (4-35); Alkaline Phosphatase* 69 U/L (40-150); Anion Gap 4 mEq/L (7-15); Aspartate Amino Transferase* 27 U/L (12-35); Bilirubin Total* 0.4 mg/dL (0.1-1.5); Blood Urea Nitrogen* 8 mg/dL (5-24); Carbon Dioxide* 25 mmol/L (20-32); Creatinine* 0.8 mg/dL (0.5-1.5); Est. Creatinine Clearance* 85.83; Estimated Glomerular Filt Rate 102 ml/min; Total Protein* 8.2 g/dL (6.0-8.3)
[2023-12-30 08:04] LABS: Glucose* 99 mg/dL (60-115)
[2023-12-30 08:06] LABS: C Reactive Protein* 1.5 mg/dL (0.5-1.0); D Dimer Quantitative* 0.36 ug/ml (0.00-0.50)
[2023-12-30 08:13] LABS: NT Pro B Type NatriureticPept* < 20 pg/mL
[2023-12-30 08:24] LABS: HCG Quantitative* < 2.39 mIU/mL; Troponin I* < 0.01 ng/mL (0.01-0.04)
== END 2023-12-30 09:16 | disposition home or self-care (01) ==
PROVIDERS: Emergency Provider Family Medicine; PCP Family Medicine
DX: J10.1 Influenza due to other identified influenza virus with other respiratory manifestations (principal)
CPT/HCPCS: 36415; 71046; 76882; 80053; 81003; 82803; 83880; 84484; 84702; 85025; 85379; 86140; 87631; 93005; 93971; 94761; 99283; 99284; 99285

== ENCOUNTER 2024-12-01 17:00 | Emergency (ER) | payer SELFPAY ==
--- OUTSIDE RECORDS SUMMARY | 2024-12-01 17:01 | XMS_ITS | Clinical Summary ---
Author Organization [facility] Address [address] [place] [address] Care Team Providers Care Accounting Software Specialist Name Role Phone Trinity Joseph DO Primary Care Provider [phone] Allergies Active Allergy Reactions Criticality Noted Date Comments Iodine Hives 08/09/2023 Shellfish Derived Hives 08/09/2023 Medications levonorgestrel (Mirena) 20 mcg/24 hours (8 yrs) 52 mg intrauterine device (IUD) Inject 1 Device intrauterine one time. Active METHOCARBAMOL ORAL Take by mouth once daily. 025 Discontin ued(*Lisa ent states no longer taking) Active Problems Problem Noted Date Diagnosed Date Pap smear for cervical cancer screening 09/24/19 Overview (09/24/2023): 09/2023 NIL/HPV Negative Plan: Pap and HPV due 09/2028 IUD (intrauterine device) in place 09/17/2023 Overview (09/17/2023): Placed December 2021 in [place] PCOS (polycystic ovarian syndrome) 09/17/2023 Overview (09/17/2023): Irregular menses. US with bilateral polycystic ovaries in November 2018. 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 ); Derm Problem (eczema flare up, would like cream prescribed.) 11/23/2024 Telephone [facility] [address] [place] [address] Ron Rodrigez MD Referral (ANGELIQUE) 11/23/2024 Travel 10/12/2024 Travel from Last 3 Months Family History [...] 0 09/17/2023 Social Connections Answer Date Recorded Do you often feel lonely or isolated from those around you? 0 10/12/2024 Financial Resource Strain Answer Date R ecorded Difficulty of Paying Living Expenses 2 10/13/2024 Difficulty of Paying Living Expenses 1 10/13/2024 Food Insecurity Answer Date Recorded Do you worry your food will run out before you are able to buy more? 1 10/12/2024 Transportation Needs Answer Date Record ed Does lack of transportation keep you from medica l appointments? 1 10/12/2024 Does lack of transportation keep you from work, meetings or getting things that you need? 1 10/12/2024 Housing Stability Answer Date Recorded What is your housing situation today? 1 10/12/2024 Utilities Answer Date Recorded Do you have trouble paying f or utilities (for example, heat, electricity, water, phone)? 1 10/12/2024 Comments No Sex and Gender Information Value Date Recorded Sex Assigned at Not on file Legal Sex Female 8:36 AM MEDICAL CARE MANAGER Gender Identity Not on file Sexual Orientation Not on file Obstetrics History Last Filed Vital Signs Vital Sign Reading Time Taken Comments Blood Pressure 119/80 11/23/2024 3:14 PM CDT Pulse 73 11/23/2024 3:14 PM CDT Temperature 36.9 C (98.4 F) 11/23/2024 3:24 PM CDT Respiratory Rate - - Oxygen Saturation 98% 11/23/2024 3:24 PM CDT Inhaled Oxygen Concentration - - Weight 135.3 kg (298 lb 3.2 oz) 11/23/2024 3:14 PM CDT Height 162.6 cm (5' 4) 09/17/2023 3:06 PM MEDICAL CARE MANAGER Body Mass Index 51.19 09/17/2023 3:06 PM MEDICAL CARE MANAGER Plan of Treatment Upcoming Encounters Date Type Department Care Team (Late st Contact Info) Description 12/05/2024 2:30 PM CDT Office Visit [facility] [address] [place] [phone] Ron Rodrigez MD [address] [facility] [address] [place] [address] Health Maintenance Due Date Last Done Comments Tdap 2005 Tetanus booster 2014 COVID-19 vaccine series ( season) 2024 Influenza Vaccine (#1) 2024 BMI (ht and wt on same day) for age 18+ 09/17/2024 09/17/2023, 08/09/2023 Depression screening for age 12+ 09/20/2024 09/20/2023, 09/17/2023 Pap test for age 21-65 09/17/2028 , 09/17/2023 HIV for age 15-65 Completed 09/17/2023 Hepatitis C screening for ag e 18-79 Completed 09/17/2023 Pneumococcal series for age 6-49 Aged Out No longer eligible b ased on patient's age to complete this topic Procedures Procedure Name Priority Date/Time Associated Diagnosis Comments ANTI HIV 1/2 Routine 09/17/2023 4:27 PM MEDICAL CARE MANAGER Routine screening for STI (sexually transmitted infection) ANTI HCV Routine 09/17/2023 4:27 PM MEDICAL CARE MANAGER Routine screening for STI (sexually transmitted infection) ROSE GRADING SUPERVISOR THIN PREP PAP SCREEN IMAGED Routine 09/17/2023 3:50 PM MEDICAL CARE MANAGER Screening for malignant neoplasm of cervix from Last 3 Months or Most Recently Relevant to Health Maintenance Results * ANTI HCV (09/17/2023 4:27 PM MEDICAL CARE MANAGER) HEPATITIS C ANTIBODY Non-Reacti ve Non-React kraig 09/20/2023 2:00 PM MEDICAL CARE MANAGER [facility] Comment:Please note, per [...] Unknown Venipuncture / Unknown 09/17/2023 4:27 PM MEDICAL CARE MANAGER 09/17/2023 4:28 PM MEDICAL CARE MANAGER Trinity Joseph DO SEND OUTS Final Resu lt Performing Organization Address [facility] Co de Phone Number [facility] [address] [address], * ANTI HIV 1/2 (09/17/2023 4:27 PM MEDICAL CARE MANAGER) Pathologist [facility] HIV-1/HIV-2 SCREEN Non-Reacti ve Non-Reacti ve 09/20/2023 2:00 PM MEDICAL CARE MANAGER [facility] Comment:HIV-1 p24 and HIV-1/ HIV-2 Ab Not Detected. Blood BLOOD SPECIMEN / Unknown Venipuncture / Unknown 09/17/2023 4:27 PM MEDICAL CARE MANAGER 09/17/2023 4:28 PM MEDICAL CARE MANAGER Trinity Joseph DO SEND OUTS Final Resu lt Performing Organization Address City/[facility] Co de Phone Number [facility] [address] [place] [address], [place] * ROSE GRADING SUPERVISOR THIN PREP PAP SCREEN IMAGED [[id number]] (09/17/2023 3:50 PM MEDICAL CARE MANAGER) Case Report Gynecologic Cytology Report Case: [id number] Authorizing Provider: Trinity Joseph DO Collected: 09/17/2023 1550 Ordering Location: [facility] Received: 09/17/2023 1619 Clinic First Screen: Leta Zuniga Specimen: ROSE GRADING SUPERVISOR ThinPrep Vial Screening, Cervical 09/22/2023 3:24 PM MEDICAL CARE MANAGER [facility] [email or web address] [facility] INTERPRETATION/ RESULT NEGATIVE FOR INTRAEPITHELIAL LESION OR MALIGNANCY (NIL) (none) 09/22/2023 3:24 PM MEDICAL CARE MANAGER [facility] IMEN ADEQUACY Satisfactory for evaluation Endocervical component present 09/22/2023 3:24 PM MEDICAL CARE MANAGER [facility] HPV REQUEST HPV and PAP 09/22/2023 3:24 PM MEDICAL CARE MANAGER [facility] Date of LMP N/A 09/22/2023 3:24 PM MEDICAL CARE MANAGER [facility] [email or web address] [facility] Last Pap Date 2020 09/22/2023 3:24 PM MEDICAL CARE MANAGER [facility] Last Pap Result NIL 3:24 PM MEDICAL CARE MANAGER [facility] Abnormal Pap or [place] Bx in last 5 years No 09/22/2023 3:24 PM MEDICAL CARE MANAGER [facility] Menstrual Status Hormonally Suppressed 09/22/2023 3:24 PM MEDICAL CARE MANAGER [facility] [place] Bx Done Today No 09/22/2023 3:24 PM MEDICAL CARE MANAGER [facility] Additional Information None given 09/22/2023 3:24 PM MEDICAL CARE MANAGER [facility] Comment: Cytology is screened at [facility] [employer] [facility], Central Laboratory - [address] [place] [address] and [facility] - [address], [place] [address] and [facility] - [address] [place] [address] Interpreted at [facility], Central Laboratory - [address], [place] [address] Automated Review Successful 09/22/2023 3:24 PM MEDICAL CARE MANAGER [facility] Comment:Specimen processed s uccessfully by automated entry level civil engineer device, ThinPrep Imaging System, [employer] ANCILLARY TESTING ROSE GRADING SUPERVISOR HPV Ordered, Please see separate report 09/22/2023 3:24 PM MEDICAL CARE MANAGER [facility] Note The pap test is a screening technique, not a diagnostic procedure. It is used primarily to screen for squamous cancers and precursor lesions. Published studies have shown that it is subject to both false negative and false positive results. The pap test should not be used as the sole means to diagnose or exclude pre-malignant and malignant lesions. 09/22/2023 3:24 PM MEDICAL CARE MANAGER [facility] Other (Cervical) Non-Blood / Unknown 09/17/2023 3:50 PM MEDICAL CARE MANAGER 09/17/2023 4:19 PM MEDICAL CARE MANAGER us Trinity Joseph DO PATHOLOGY/CYTOLOGY Final R esult [facility] [address] [place] [address], [place] from Last 3 Months or Most Recently Relevant to Health Maintenance Care Teams Accounting Software Specialist Relationship Specialty Start Date End Date Trinity Joseph DO [address] [place] [address] PCP - General Family Practice 08/09/23
[2024-12-01 17:06] VITALS: BP 153/88; PULSE 83; RESP 16; TEMP 36.4; O2SAT 99; BMI 52.8
--- NOTE | 2024-12-01 17:12 | CRLHL7_ITS ---
For Patients: As a result of the Century Cures Act, medical imaging exams and procedure reports are released immediately into your electronic medical record. You may view this report before your referring provider. If you have questions, please contact your health care provider. Indication: PELVIC PAIN FOR 1 WEEK, SPOTTING, IUD Technique: Real-time sonographic images of the pelvis were obtained transvaginally utilizing grayscale, color, and Doppler imaging. Comparison: None. Findings: Uterus: Appearance: Nabothian cysts. Position: Anteverted. Size: 8.6 x 3.7 x 4.2 cm. Endometrial stripe: 10 mm. Intrauterine device is seen within the uterus, though the left arm is not definitively visualized. Right ovary: Size: 6.0 x 2.7 x 4.5 cm. Appearance: Normal morphology. No masses. Preserved blood flow. Left ovary: Size: 6.2 x 2.7 x 3.3 cm. Appearance: Normal morphology. No masses. Preserved blood flow. Free fluid: None. Impression: 1. Intrauterine device is seen within the uterus, though the left arm is not definitively visualized. 2. Normal sonographic appearance of the bilateral ovaries. Dictated by Markus Chris MD @ 12/01/2024 6:49:19 PM (Electronically Signed)
--- NOTE | 2024-12-01 17:21 | ED.GENADULT ---
HPI - General Adult General Date Seen: 12/01/24 Chief complaint: Abdominal Pain Stated complaint: Abdominal Pain, Abnormal Discharge Time Seen by Provider: 12/01/24 17:03 History of Present Illness HPI narrative: Patient is a 29-year-old generally healthy young woman who presents for the evaluation of pelvic pain which has been intermittent for the past week. She says she notes symptoms primarily at night or if she lays on her stomach. She has an IUD which was placed about a year ago, she has not had any problems with that and does not get periods anymore. She has had a little spotting this week. Last sexual activity was about 6 months ago, she says that person was having sex with someone else but she has not had any other sexual contact since then. She has not had fevers, has been a little nauseated occasionally but no vomiting, no constipation or diarrhea. No abdominal surgeries. She has tried ibuprofen and Tylenol but they have not helped. She smokes occasional marijuana, does not smoke cigarettes. She drinks on the weekends. Related Data Home Medications ?Medication ?Instructions ?Recorded ?Confirmed IUD 12/30/23 Previous Rx's ?Medication ?Instructions ?Recorded lidocaine 5 %-phenylephrine 0.25 1 applic topical TID PRN #28 grams 09/28/22 %-glycern 14.4 %-petrolatm 15 % cream (Preparation H Rapid Relief-Lidocaine) diazepam 5 mg tablet (Valium) 5 mg PO BID PRN #5 tabs 08/05/23 methocarbamol 750 mg tablet 750 mg PO QID PRN #10 tabs 08/05/23 Allergies Allergy/AdvReac Type Severity Reaction Status Date / Time iodine Allergy Unknown Verified 12/30/23 06:50 shellfish derived Allergy Anaphylaxis Verified 12/30/23 06:50 Review of Systems Status of ROS: Reports: 10 or more systems reviewed and unremarkable except as noted in History and below [facility] Social History Smoking Status: Never smoker Do you use any of these nicotine containing products: None How often do you have a drink containing alcohol: never How often do you have six or more drinks on one occasion: Never AUDIT-C Alcohol total score: 0 Non-prescribed substance use: denies use service: No Exam Narrative: Exam Narrative: Vital signs reviewed In general, alert, nontoxic young woman. she looks comfortable. Head: Normocephalic, atraumatic. Eyes: Sclera clear. Pupils equal and reactive. ENT: Mucous membranes moist. Neck: Supple without adenopathy. Heart: Regular rate and rhythm without murmur. Lungs: Clear. No increased work of breathing, crackles or wheezes. Abdomen: Soft, nontender to palpation. Extremities: Well perfused, pulses intact. No significant edema. Neurologic: Alert, conversant. Speech fluent, face symmetric. Moves all extremities equally. Skin: Warm, dry well perfused. Affect: Normal. Const: Vital Signs, click to edit/add: Vital Signs - 24 hr 12/01/24 17:06 12/01/24 19:36 Temperature 97.6 F 98.4 F Pulse Rate [Pulse Oximeter] 83 76 Respiratory Rate 16 16 Blood Pressure [Ri ght Forearm] 153/88 H 128/64 Pulse Oximetry 99 Oxygen Delivery Me thod Room Air Course Course ED Course: Will go ahead and get a urine, rule out , get an ultrasound just to confirm that her IUD is still in proper position. Her abdominal exam is benign. Symptoms have been intermittent for week, I do not suspect this is a surgical issue such as ovarian torsion, appendicitis, tubo-ovarian abscess, PID seems somewhat unlikely given benign abdominal exam and absence of other symptoms, but will get testing for chlamydia and gonorrhea done. Toradol IM for pain control. Urinalysis here is negative. test is negative. CBC metabolic panel and CRP reviewed and no significant findings. Pelvic ultrasound reviewed by Radiology is showing normal ovaries with good flow, IUD in the pelvis although they were unable to identify the left arm of the IUD. I reviewed this with Dr. Laura who suggested just getting a plain film to make sure that that had not traveled anywhere else. The plain film on my review shows I think an intact IUD in the pelvis. Read by Radiology as showing an IUD in the midline pelvis. Reviewed with her that symptoms may be related to uterine cramping, it is possible that she may be having a little bit of a period. Exam is benign, labs are reassuring. I did send a urine for chlamydia and gonorrhea as well. Aside from spotting she does not have complaints of other significant discharge, will call her with results of the chlamydia. See chlamydia negative. Vital Signs Vital signs: Initial Vital Signs Temperature 97.6 F 12/01/24 17:06 Temperature Source Temporal Artery Scan 12/01/24 17:06 Pulse Rate 83 12/01/24 17:06 Pulse Rhythm Regular 12/01/24 17:06 Respiratory Rate 16 12/01/24 17:06 Blood Pressure 153/88 H 12/01/24 17:06 Blood Pressure Mean 109 H 12/01/24 17:06 Blood Pressure Position Sitting 12/01/24 17:06 Pulse Oximetry 99 12/01/24 17:06 Oxygen Delivery Method Room Air 12/01/24 17:06 Vital Signs Temperature 97.6 F 12/01/24 17:06 Pulse Rate 83 12/01/24 17:06 Respiratory Rate 16 12/01/24 17:06 Blood Pressure 153/88 H 12/01/24 17:06 Pulse Oximetry 99 12/01/24 17:06 Oxygen Delivery Method Room Air 12/01/24 17:06 Temperature 98.4 F 12/01/24 19:36 Pulse Rate 76 12/01/24 19:36 Respiratory Rate 16 12/01/24 19:36 Blood Pressure 128/64 12/01/24 19:36 Pulse Oximetry 99 12/01/24 17:06 Oxygen Delivery Method Room Air 12/01/24 17:06 Medications Administered Medications: Discontinued Medications Generic Name Dose Route Start Last Admin Trade Name Freq PRN Reason Stop Dose Admin Ketorolac Tromethamine 15 mg 12/01/24 17:12 12/01/24 17:24 Ketorolac 15 Mg/Ml Inj IVP 12/01/24 17:13 15 mg ONCE ONE Administration Medical Decision Making Lab Data Lab results reviewed: Yes I reviewed the patient's lab results Labs: Lab Results 12/01/24 12/01/24 12/01/24 Range/Units 17:00 17:55 19:15 WBC 10.50 (4.50-11.00) K/uL RBC 4.33 (4.00-5.20) m/uL Hgb 11.9 L (12.0-16.0) gm/dL Hct 35.8 (33.0-51.0) % MCV 83 (80-100) fL MCH 28 (26-34) pg MCHC 33 (32-36) gm/dL RDW Coeff of Chana 13.0 (11.5-15.5) % Plt Count 343 (140-440) K/uL Neut % (Auto) 66.8 (42.0-72.0) % Lymph % (Auto) 24.6 (20-44) % [place] % (Auto) 6.3 (0.0-11.0) % Eos % (Auto) 1.7 (0.0-7.0) % Baso % (Auto) 0.5 (0.0-3.0) % Neut # (Auto) 7.02 H (1.7-7.0) K/uL Lymph # (Auto) 2.58 (0.90-2.90) K/uL [place] # (Auto) 0.70 (0.00-0.90) K/UL Eos # (Auto) 0.18 (0.00-0.50) K/uL Baso # (Auto) 0.05 (0.00-0.30) K/uL Abs Immat Gran (auto) 0.01 (0.00-0.30) K/uL Imm/Tot Granulo (auto) 0.1 % Sodium 138 (135-149) mmol/L Potassium 3.4 L (3.6-5.1) mmol/L Chloride 105 (96-114) mmol/L Carbon Dioxide 24 (20-32) mmol/L Anion Gap 9 (7-15) mEq/L BUN 14 (5-24) mg/dL Creatinine 0.9 (0.5-1.5) mg/dL Estimated Creat Clear 75.61 Estimated GFR 88 ml/min Glucose 105 (60-115) mg/dL Calcium 9.2 (8.4-10.6) mg/dL C-Reactive Protein < 0.5 L (0.5-1.0) mg/dL Urine Color Yellow (Yellow) Urine Appearance Clear (Clear) Urine pH 6.0 (5.0-8.5) Ur Specific [place] >= 1.030 (1.000-1.030) Urine Protein Negative (Negative) Urine Glucose (UA) Negative (Negative) Urine Ketones Trace A (Negative) Urine Blood 2+ A (Negative) Urine Nitrite Negative (Negative) Urine Bilirubin Negative (Negative) Urine Urobilinogen 1.0 (0.2-1.0) Ur Leukocyte Esterase Negative (Negative) Urine RBC 2-5 A (0-2) Urine WBC 0-2 (0-5) Ur Squamous Epith Cells Few (None-Few) Urine Bacteria None (None) Urine HCG, Qual Negative (Negative) C.trachomatis Ampl DNA NOT DETECTED (No Detected) N.gonorrhoeae Ampl DNA NOT DETECTED (No Detected) Imaging Data US - abdomen: Attestation: I have reviewed the pertinent imaging results. Radiologist's impression: [place] [id number] Diagnostic Imaging Report Patient: Kimberly Quinones MR#: [id number] : 1995 Acct:[id number] Loc: ED Service Date: 12/01/[address]: Ordering Physician: Delmis Jarrell M.D. Date of Service: 12/01/24 Procedure(s): US pelvic transvaginal Accession Number(s): [id number] cc: Delmis Jarrell M.D.; Trinity Joseph, DO~ For Patients: As a result of the Cures Act, medical imaging exams and procedure reports are released immediately into your electronic medical record. You may view this report before your referring provider. If you have questions, please contact your health care provider. Indication: PELVIC PAIN FOR 1 WEEK, SPOTTING, IUD Technique: Real-time sonographic images of the pelvis were obtained transvaginally utilizing grayscale, color, and Doppler imaging. Comparison: None. Findings: Uterus: Appearance: Nabothian cysts. Position: Anteverted. Size: 8.6 x 3.7 x 4.2 cm. Endometrial stripe: 10 mm. Intrauterine device is seen within the uterus, though the left arm is not definitively visualized. Right ovary: Size: 6.0 x 2.7 x 4.5 cm. Appearance: Normal morphology. No masses. Preserved blood flow. Left ovary: Size: 6.2 x 2.7 x 3.3 cm. Appearance: Normal morphology. No masses. Preserved blood flow. Free fluid: None. Impression: 1. Intrauterine device is seen within the uterus, though the left arm is not definitively visualized. 2. Normal sonographic appearance of the bilateral ovaries. Dictated by Markus Chris MD @ 12/01/2024 6:49:19 PM Discharge Plan Discharge Clinical Impression: Pelvic pain Patient Disposition: Home, Self-Care Condition: Improved Instructions: Pelvic Pain in Women (ED) Additional Instructions: We will call you if results of STI testing are positive any require treatment. Otherwise, symptoms may be related to uterine cramping. I prescribed Toradol to see if that works better for you. If symptoms do not resolve over the next few days, please make an appointment to follow up with [facility] for recheck. Return any time for severe pain or new symptoms such as fever, vomiting, or other worsening. The x-ray shows the IUD to be intact and well positioned. Prescriptions: No Action Preparation H Rapid Rlf-Lidocn 5-0.25-14.4-15 % cream 1 applic topical TID PRNQty: 28 0RF methocarbamol 750 mg tablet 750 mg PO QID PRNQty: 10 0RF diazepam [Valium] 5 mg tablet 5 mg PO BID PRNQty: 5 0RF IUD Follow Up/Referrals: Trinity Joseph DO [Primary Care Provider] - Stand Alone Forms: [employer] Info Instructions
[2024-12-01] MEDS: KETOROLAC 15 MG/ML inj IVP (17:24)
[2024-12-01 17:32] LABS: Basophils Absolute Auto 0.05 K/uL (0.00-0.30); Basophils Percent Auto 0.5 % (0.0-3.0); Eosinophils Absolute Auto 0.18 K/uL (0.00-0.50); Eosinophils Percent Auto 1.7 % (0.0-7.0); Hematocrit 35.8 % (33.0-51.0); Hemoglobin* 11.9 gm/dL (12.0-16.0); Immature Granulocytes Abs Auto 0.01 K/uL (0.00-0.30); Immature Granulocytes Pct Auto 0.1 %; Lymphocytes Absolute Auto 2.58 K/uL (0.90-2.90); Lymphocytes Percent Auto 24.6 % (20-44); Mean Corpuscular HGB Conc 33 gm/dL (32-36); Mean Corpuscular Hemoglobin 28 pg (26-34); Mean Corpuscular Volume 83 fL (80-100); Monocytes Percent Auto 6.3 % (0.0-11.0); Neutrophils Absolute Auto 7.02 K/uL (1.7-7.0); Neutrophils Percent Auto 66.8 % (42.0-72.0); Platelet Count* 343 K/uL (140-440); Red Blood Count 4.33 m/uL (4.00-5.20)
[2024-12-01 17:33] LABS: Slide Review Reflex No
[2024-12-01 17:48] LABS: Chloride* 105 mmol/L (96-114); Potassium* 3.4 mmol/L (3.6-5.1); Sodium* 138 mmol/L (135-149)
[2024-12-01 17:51] LABS: Blood Urea Nitrogen* 14 mg/dL (5-24); Creatinine* 0.9 mg/dL (0.5-1.5); Est. Creatinine Clearance* 75.61; Estimated Glomerular Filt Rate 88 ml/min
[2024-12-01 17:52] LABS: Anion Gap 9 mEq/L (7-15); Calcium* 9.2 mg/dL (8.4-10.6); Carbon Dioxide* 24 mmol/L (20-32); Glucose* 105 mg/dL (60-115)
[2024-12-01 17:55] LABS: C Reactive Protein* < 0.5 mg/dL (0.5-1.0)
--- OUTSIDE RECORDS SUMMARY | 2024-12-01 17:55 | XMS_ITS | Clinical Summary ---
Author Organization [facility] s & [facility] Address [address] [place] [address] Care Team Providers Care Clinical Specialist Medical Device Name Role Phone Trinity Joseph DO Primary Care Provider [phone]- [phone] Allergies Active Allergy Reactions Criticality Noted Date [...] 09/17/2023 Overview (09/17/2023): Placed December 2021 in [place] PCOS (polycystic ovarian syndrome) 09/17/2023 Overview (09/17/2023): Irregular menses. US with bilateral polycystic ovaries in November 2018. 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 ); Derm Problem (eczema flare up, would like cream prescribed.) 11/23/2024 Telephone [facility] [address] [place] [address] Ron Rodrigez MD Referral (ANGELIQUE) [...] on file Legal Sex Female 8:36 AM BOOM TENDER Gender Identity Not on file Sexual Orientation [...] 162.6 cm (5' 4) 09/17/2023 3:06 PM BOOM TENDER Body Mass Index 51.19 09/17/2023 3:06 PM BOOM TENDER Plan of Treatment Upcoming Encounters Date Type Department Care Team (Late st Contact Info) Description 12/05/2024 2:30 PM CDT Office Visit [facility] [address] [place] [phone] Ron Rodrigez MD [address] [facility] [address] [place] [address] Health Maintenance Due Date Last Done Comments [...] ANTI HIV 1/2 Routine 09/17/2023 4:27 PM BOOM TENDER Routine screening for STI (sexually transmitted infection) ANTI HCV Routine 09/17/2023 4:27 PM BOOM TENDER Routine screening for STI (sexually transmitted infection) SUPERVISOR UNDERWRITING CLERKS THIN PREP PAP SCREEN IMAGED Routine 09/17/2023 3:50 PM BOOM TENDER Screening for malignant neoplasm of cervix from Last 3 Months or Most Recently Relevant to Health Maintenance Results * ANTI HCV (09/17/2023 4:27 PM BOOM TENDER) HEPATITIS C ANTIBODY Non-Reacti ve Non-React kraig 09/20/2023 2:00 PM BOOM TENDER [facility] Comment:Please note, per www .CDC.gov: If a patient is known to be at high risk of HCV infection, or is symptomatic, and the physician's suspicion of HCV infection is high, HCV RNA testing is often employed and is of diagnostic value, even after an initial negative anti-HCV test result. Blood BLOOD SPECIMEN / Unknown Venipuncture / Unknown 09/17/2023 4:27 PM BOOM TENDER 09/17/2023 4:28 PM BOOM TENDER Trinity Joseph DO SEND OUTS Final Resu lt Performing Organization Address [facility] Co de Phone Number [facility] [address] [address], * ANTI HIV 1/2 (09/17/2023 4:27 PM BOOM TENDER) Pathologist [facility] HIV-1/HIV-2 SCREEN Non-Reacti ve Non-Reacti ve 09/20/2023 2:00 PM BOOM TENDER [facility] Comment:HIV-1 p24 and HIV-1/ HIV-2 Ab Not Detected. Blood BLOOD SPECIMEN / Unknown Venipuncture / Unknown 09/17/2023 4:27 PM BOOM TENDER 09/17/2023 4:28 PM BOOM TENDER Trinity Joseph DO SEND OUTS Final Resu lt Performing Organization Address City/[facility] Co de Phone Number [facility] [address] [place] [address], [place] * SUPERVISOR UNDERWRITING CLERKS THIN PREP PAP SCREEN IMAGED [[id number]] (09/17/2023 3:50 PM BOOM TENDER) Case Report Gynecologic Cytology Report Case: [id number] Authorizing Provider: Trinity Joseph DO Collected: 09/17/2023 1550 Ordering Location: [facility] Received: 09/17/2023 1619 Clinic First Screen: Leta Zuniga Specimen: SUPERVISOR UNDERWRITING CLERKS ThinPrep Vial Screening, Cervical 09/22/2023 3:24 PM BOOM TENDER [facility] [employer] [facility]- ENTRAL LABORATORY INTERPRETATION/ RESULT NEGATIVE FOR INTRAEPITHELIAL LESION OR MALIGNANCY (NIL) (none) 09/22/2023 3:24 PM BOOM TENDER [facility] ENTRAL LABORATORY IMEN ADEQUACY Satisfactory for evaluation Endocervical component present 09/22/2023 3:24 PM BOOM TENDER [facility] EN[facility] LAB[facility] HPV REQUEST HPV and PAP 09/22/2023 3:24 PM BOOM TENDER [facility] ENTRAL LAB[facility] Date of LMP N/A 09/22/2023 3:24 PM BOOM TENDER [facility] [employer] [facility] ENTRAL LABORATORY Last Pap Date 2020 09/22/2023 3:24 PM BOOM TENDER [facility] ENTRAL LABOR[facility] Last Pap Result NIL 3:24 PM BOOM TENDER [facility] EN[facility] Abnormal Pap or [place] Bx in last 5 years No 09/22/2023 3:24 PM BOOM TENDER [facility] Menstrual Status Hormonally Suppressed 09/22/2023 3:24 PM BOOM TENDER [facility] [place] Bx Done Today No 09/22/2023 3:24 PM BOOM TENDER [facility] Additional Information None given 09/22/2023 3:24 PM BOOM TENDER [facility] ENTRAL LAB[facility] Comment: Cytology is screened at [facility] [employer] [facility], Central Laboratory - [address], [place] [address] and [facility] - [address], [place] [address] and [facility] - [address] [place] [address] Interpreted at [facility], Central Laboratory - [address], [place] [address] Automated Review Successful 09/22/2023 3:24 PM BOOM TENDER [facility] ENTRLA LABORATORY Comment:Specimen processed s uccessfully by automated unit secretary device, ThinPrep Imaging System, [employer] ANCILLARY TESTING SUPERVISOR UNDERWRITING CLERKS HPV Ordered, Please see separate report 09/22/2023 3:24 PM BOOM TENDER [facility] Note The pap test is [...] pre-malignant and malignant lesions. 09/22/2023 3:24 PM BOOM TENDER [facility] Other (Cervical) Non-Blood / Unknown 09/17/2023 3:50 PM BOOM TENDER 09/17/2023 4:19 PM BOOM TENDER us Trinity Joseph DO PATHOLOGY/CYTOLOGY Final R esult [facility] [address] [place] [address], [place] from Last 3 Months or Most Recently Relevant to Health Maintenance Care Teams Clinical Specialist Medical Device Relationship Specialty Start Date End Date Trinity Joseph DO [address] [place] [address] PCP - General Family Practice 08/09/23
[2024-12-01 18:13] LABS: Appearance Urine Clear (Clear); Bilirubin Urine Negative (Negative); Blood Urine 2+ (Negative); Color Urine Yellow (Yellow); Glucose Urine Negative (Negative); Ketones Urine Trace (Negative); Leukocyte Esterase Urine Negative (Negative); Nitrite Urine Negative (Negative); Protein Urine Negative (Negative); Specific Gravity Urine >= 1.030 (1.000-1.030)
[2024-12-01 18:21] LABS: Ur HCG Qualitative* Negative (Negative)
[2024-12-01 18:28] LABS: Squamous Epithelial Cell Urine Few (None-Few); WBC Urine 0-2 (0-5)
--- NOTE | 2024-12-01 18:55 | CRLHL7_ITS ---
For Patients: As a result of the Cures Act, medical imaging exams and procedure reports are released immediately into your electronic medical record. You may view this report before your referring provider. If you have questions, please contact your health care provider. INDICATION: Check IUD TECHNIQUE: Abdomen Pelvis radiograph 1 view COMPARISON: None FINDINGS: The sensitivity and specificity of the exam are moderately limited by the patient`s body habitus. Bowel: The epigastrium and upper abdomen are excluded and cannot be evaluated. The bowel gas pattern is normal without evidence of bowel obstruction. Soft tissue: No evidence of pneumoperitoneum present. No suspicious calcifications noted. An IUD is present and positioned in the midline pelvis. Bone: Unremarkable for age. IMPRESSION: 1. Unremarkable appearance of the visualized abdomen. Dictated by Saurav Weiner MD @ 12/01/2024 7:24:35 PM Dictated by: Saurav Weiner MD @ 12/01/2024 19:24:47 (Electronically Signed)
[2024-12-01 19:36] VITALS: BP 128/64; PULSE 76; RESP 16; TEMP 36.9
[2024-12-01 21:18] LABS: Chlamydia DNA Amplified* NOT DETECTED (No Detected); GC DNA Amplified* NOT DETECTED (No Detected)
== END 2024-12-01 19:37 | disposition home or self-care (01) ==
PROVIDERS: Emergency Provider Emergency Medicine; PCP Family Medicine
DX: R10.2 Pelvic and perineal pain (principal)
CPT/HCPCS: 36415; 74018; 76830; 80048; 81001; 81025; 85025; 86140; 87491; 87591; 93976; 96374; 99284; J1885

== ENCOUNTER 2025-01-02 07:36 | Emergency (ER) | payer SELFPAY ==
[2025-01-02 07:39] VITALS: BP 135/81; PULSE 87; RESP 18; TEMP 36.6; O2SAT 98; BMI 52.8
--- OUTSIDE RECORDS SUMMARY | 2025-01-02 07:39 | XMS_ITS | Clinical Summary ---
Author Organization [facility] s & [facility] Address [address] [place] [address] Care Team Providers Care Product Safety Consultant Name Role Phone Trinity Joseph DO Primary Care Provider [phone]- [phone] Allergies Active Allergy Reactions Criticality Noted Date Comments Iodine Hives 08/09/2023 Shellfish Derived Hives 08/09/2023 Medications levonorgestrel (Mirena) 20 mcg/24 hours (8 yrs) 52 mg intrauterine device (IUD) Inject 1 Device intrauterine one time. Active Active Problems Problem Noted Date Diagnosed Date Pap smear for cervical cancer screening 09/24/19 Overview (09/24/2023): 09/2023 NIL/HPV Negative Plan: Pap and HPV due 09/2028 IUD (intrauterine device) in place 09/17/2023 Overview (09/17/2023): Placed December 2021 in [place] PCOS (polycystic ovarian syndrome) 09/17/2023 Overview (09/17/2023): Irregular menses. US with bilateral polycystic ovaries in November 2018. 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 ); Derm Problem (eczema flare up, would like cream prescribed.) 11/23/2024 Telephone [facility] [address] [place] [address] Ron Rodrigez MD Referral (ANGELIQUE) [...] on file Legal Sex Female 8:36 AM COW TRIMMER Gender Identity Not on file Sexual Orientation [...] 162.6 cm (5' 4) 09/17/2023 3:06 PM COW TRIMMER Body Mass Index 51.19 09/17/2023 3:06 PM COW TRIMMER Plan of Treatment Upcoming Encounters Date Type Department Care Team (Late st Contact Info) Description 01/09/2025 3:30 PM CDT Office Visit [facility] [address] [place] [phone] Ron Rodrigez MD [address] [facility] [address] [place], [place] [id number] Health Maintenance Due Date Last Done Comments Tdap 2005 Tetanus booster 2014 COVID-19 vaccine series ( season) 2024 BMI (ht and wt on same day) for age 18+ 09/17/2024 09/17/2023, 08/09/2023 Depression screening for age 12+ 09/20/2024 09/20/2023, 09/17/2023 Influenza Vaccine (Season Ended) 2025 Pap test for age 21-65 09/17/2028 , 09/17/2023 HIV for age 15-65 Completed 09/17/2023 Hepatitis C screening for ag e 18-79 Completed 09/17/2023 Pneumococcal series for age 6-49 Aged Out No longer eligible b ased on patient's age to complete this topic Procedures Procedure Name Priority Date/Time Associated Diagnosis Comments ANTI HIV 1/2 Routine 09/17/2023 4:27 PM COW TRIMMER Routine screening for STI (sexually transmitted infection) ANTI HCV Routine 09/17/2023 4:27 PM COW TRIMMER Routine screening for STI (sexually transmitted infection) DIRECTOR INTERNAL AUDIT THIN PREP PAP SCREEN IMAGED Routine 09/17/2023 3:50 PM COW TRIMMER Screening for malignant neoplasm of cervix from Last 3 Months or Most Recently Relevant to Health Maintenance Results * ANTI HCV (09/17/2023 4:27 PM COW TRIMMER) HEPATITIS C ANTIBODY Non-Reacti ve Non-React kraig 09/20/2023 2:00 PM COW TRIMMER [facility] Comment:Please note, per www .CDC.gov: If a patient is known to be at high risk of HCV infection, or is symptomatic, and the physician's suspicion of HCV infection is high, HCV RNA testing is often employed and is of diagnostic value, even after an initial negative anti-HCV test result. Blood BLOOD SPECIMEN / Unknown Venipuncture / Unknown 09/17/2023 4:27 PM COW TRIMMER 09/17/2023 4:28 PM COW TRIMMER Trinity Joseph DO SEND OUTS Final Resu lt Performing Organization Address [facility]/ZIP Co de Phone Number [facility] [address] [place] [address], * ANTI HIV 1/2 (09/17/2023 4:27 PM COW TRIMMER) HIV-1/HIV-2 SCREEN Non-Reacti ve Non-Reacti ve 09/20/2023 2:00 PM COW TRIMMER [facility] Comment:HIV-1 p24 and HIV-1/ HIV-2 Ab Not Detected. Blood BLOOD SPECIMEN / Unknown Venipuncture / Unknown 09/17/2023 4:27 PM COW TRIMMER 09/17/2023 4:28 PM COW TRIMMER Trinity Joseph DO SEND OUTS Final Resu lt Performing Organization Address City/[facility]/ZIP Co de Phone Number [facility] [address] [place] [id number], [place] * DIRECTOR INTERNAL AUDIT THIN PREP PAP SCREEN IMAGED [[id number]] (09/17/2023 3:50 PM COW TRIMMER) Case Report Gynecologic Cytology Report Case: [id number] Authorizing Provider: Trinity Joseph DO Collected: 09/17/2023 1550 Ordering Location: [facility] Received: 09/17/2023 1619 Clinic First Screen: Leta Zuniga Specimen: DIRECTOR INTERNAL AUDIT ThinPrep Vial Screening, Cervical 09/22/2023 3:24 PM COW TRIMMER [facility]- ENTRAL LABORATORY INTERPRETATION/ RESULT NEGATIVE FOR INTRAEPITHELIAL LESION OR MALIGNANCY (NIL) (none) 09/22/2023 3:24 PM COW TRIMMER [facility] [employer] [facility] ENTRAL LABORATORY at 1524 COW TRIMMER SPECIMEN ADEQUACY Satisfactory for evaluation Endocervical component present 09/22/2023 3:24 PM COW TRIMMER [facility] [employer] [facility] HPV REQUEST HPV and PAP 09/22/2023 3:24 PM COW TRIMMER [facility] [employer] [facility] Date of LMP N/A 09/22/2023 3:24 PM COW TRIMMER [facility] [employer] [facility] Last Pap Date 2020 09/22/2023 3:24 PM COW TRIMMER [facility] EN[facility]AL LABORATORY Last Pap Result NIL 3:24 PM COW TRIMMER [facility] Abnormal Pap or [place] Bx in last 5 years No 09/22/2023 3:24 PM COW TRIMMER [facility] [employer] [address] [facility] ENTRAL LABORATORY Menstrual Status Hormonally Suppressed 09/22/2023 3:24 PM COW TRIMMER [facility] ENTRAL LABORATORY [place] Bx Done Today No 09/22/2023 3:24 PM COW TRIMMER [facility] ENTRAL LABORATORY Additional Information None given 09/22/2023 3:24 PM COW TRIMMER [facility] Comment: Cytology is screened at [facility] [employer] [facility], Central Laboratory - [address], [place] [address] and [facility] - [address], [place] [address] and [facility] Laboratory - [address] [place] [address] Interpreted at [facility] [employer] [facility] Central Laboratory - [address], [place] [address] Automated Review Successful 09/22/2023 3:24 PM COW TRIMMER [facility] LAB[facility]- ENTRAL LABORATORY Comment:Specimen processed s uccessfully by automated adult education manager device, [employer] Imaging System, [employer] ANCILLARY TESTING DIRECTOR INTERNAL AUDIT HPV Ordered, Please see separate report 09/22/2023 3:24 PM COW TRIMMER [facility]- ENTRAL LABORATORY Note The pap test is a screening technique, not a diagnostic procedure. It is used primarily to screen for squamous cancers and precursor lesions. Published studies have shown that it is subject to both false negative and false positive results. The pap test should not be used as the sole means to diagnose or exclude pre-malignant and malignant lesions. 09/22/2023 3:24 PM COW TRIMMER [facility] ENTRAL LABORATORY Other (Cervical) Non-Blood / Unknown 09/17/2023 3:50 PM COW TRIMMER 09/17/2023 4:19 PM COW TRIMMER us Trinity Joseph DO PATHOLOGY/CYTOLOGY Final R esult [facility] [address] [place] [address], [place] from Last 3 Months or Most Recently Relevant to Health Maintenance Care Teams Product Safety Consultant Relationship Specialty Start Date End Date Trinity Joseph DO [address] [place] [address] PCP - General Family Practice 08/09/23
[2025-01-02 08:25] LABS: Strep A DNA Probe* NOT DETECTED (Not Detectd)
--- NOTE | 2025-01-02 08:28 | ED_ITS ---
[facility] - General Adult General Date Seen: 01/02/25 Chief complaint: Sore Throat Stated complaint: Throat, can't really talk Time Seen by Provider: 01/02/25 08:10 Source: patient Mode of arrival: ambulatory Limitations: no limitations History of Present Illness [facility] narrative: Patient is a 29-year-old female presenting to the emergency department for a sore throat. She states she started having viral symptoms yesterday and thought she was was developing a cold. Today she woke up in noticed a sore throat. Has not noticed any changes to her voice and has been able to eat and drink appropri ately. No associated shortness of breath. She does state it hurts when she talks too loud. Has not had any fevers or chills. Denies chest pain, weakness, numbness, headache, lightheadedness, dizziness. Had some nausea this morning and vomited a small amount of mucus she states. States her nausea is relatively mild at this time. Denies having a sore throat this bad before. No other concerns noted. Related Data Home Medications ?Medication ?Instructions ?Recorded ?Confirmed IUD 12/30/23 Allergies Allergy/AdvReac Type Severity Reaction Status Date / Time iodine Allergy Unknown Verified 01/02/25 07:48 shellfish derived Allergy Anaphylaxis Verified 01/02/25 07:48 Review of Systems Narrative: Pertinent systems reviewed and were negative unless stated in [facility] PFS PFS Social History Smoking Status: Never smoker Do you use any of these nicotine containing products: None How often do you have a drink containing alcohol: never How often do you have six or more drinks on one occasion: Never AUDIT-C Alcohol total score: 0 Non-prescribed substance use: denies use service: No Exam Narrative: Exam Narrative: Const: Well-nourished, Well-developed, in mild distress Eyes: PERRL, no conjunctival injection, and symmetrical lids HENT: Atraumatic external nose and ears. Moist mucous membranes. Mildly erythematous oropharynx. Uvula midline, no tonsillar exudates or swelling. No swelling noted under the tongue. Good dentition. Neck: Symmetric, trachea midline, No thyromegaly. CVS: RRR, No murmurs or gallops. Peripheral pulses 2+ and equal in all extremities RESP: Unlabored respiratory effort. Clear to auscultation bilaterally. MSK:Extremities w/o deformity, Normal Active ROM Skin: Warm, Dry. No rashes or lesions. Neuro: Normal Muscle tone, No focal neurological deficits. Psych: Awake, Alert, & Oriented x3. Appropriate mood and affect. Const: Vital Signs, click to edit/add: Vital Signs - 24 hr 01/02/25 07:39 Temperature 98 F Pulse Rate [Right Pulse Oximeter] 87 Respiratory Rate 18 Blood Pressure [Ri ght Upper Arm] 135/81 Pulse Oximetry 98 Oxygen Delivery Me thod Room Air Course Vital Signs Vital signs: Initial Vital Signs Temperature 98 F 01/02/25 07:39 Temperature Source Temporal Artery Scan 01/02/25 07:39 Pulse Rate 87 01/02/25 07:39 Pulse Rhythm Regular 01/02/25 07:39 Pulse Strength 3+ Normal 01/02/25 07:39 Respiratory Rate 18 01/02/25 07:39 Blood Pressure 135/81 01/02/25 07:39 Blood Pressure Mean 99 01/02/25 07:39 Blood Pressure Position Sitting 01/02/25 07:39 Pulse Oximetry 98 01/02/25 07:39 Oxygen Delivery Method Room Air 01/02/25 07:39 Vital Signs Temperature 98 F 01/02/25 07:39 Pulse Rate 87 01/02/25 07:39 Respiratory Rate 18 01/02/25 07:39 Blood Pressure 135/81 01/02/25 07:39 Pulse Oximetry 98 01/02/25 07:39 Oxygen Delivery Method Room Air 01/02/25 07:39 Temperature 98 F 01/02/25 07:39 Pulse Rate 87 01/02/25 07:39 Respiratory Rate 18 01/02/25 07:39 Blood Pressure 135/81 01/02/25 07:39 Pulse Oximetry 98 01/02/25 07:39 Oxygen Delivery Method Room Air 01/02/25 07:39 Medications Administered Medications: Discontinued Medications Generic Name Dose Route Start Last Admin Trade Name Freq PRN Reason Stop Dose Admin Dexamethasone 10 mg 01/02/25 08:21 01/02/25 08:33 Dexamethasone 10 Mg/Ml Pf PO 01/02/25 08:22 10 mg ONCE ONE Administration Ondansetron HCl 4 mg 01/02/25 08:21 01/02/25 08:33 Ondansetron Odt 4 Mg Tab PO 01/02/25 08:22 4 mg ONCE ONE Administration Medical Decision Making MDM Narrative Medical decision making narrative: Patient is a 29-year-old female presenting for sore throat. Patient is not showing signs of peritonsillar abscess, Fernando angina, retropharyngeal abscess,Lemierre disease or any other concerning oral pharynx or deep neck space abscesses. Imaging is not necessary. I will give her dexamethasone for sore throat along with some Zofran for her nausea. Viral swabs ordered along with a strep test. She is COVID positive. She states this is 3rd or 4th having COVID. She will be discharged. She is agreeable to this plan. Lab Data Labs: Lab Results 01/02/25 Range/Units 07:50 SARS-CoV-2 (PCR) POSITIVE SARS-CoV-2 A (Negative) Influenza Type A (PCR) Negative PCR FLU A (Negative) Influenza Type B (PCR) Negative PCR FLU B (Negative) RSV (PCR) Negative PCR RSV (Negative) Group A Strep DNA NOT DETECTED (Not Detectd) Discharge Plan Discharge Clinical Impression: COVID Patient Disposition: Home, Self-Care Condition: Stable Instructions: COVID-19 (Coronavirus Disease 2019) (ED) Additional Instructions: Take Tylenol ibuprofen for sore throat. Return to emergency department for new or worsening symptoms. Prescriptions: No Action IUD Follow Up/Referrals: Trinity Joseph DO [Primary Care Provider] - Stand Alone Forms: Work/School Release, [facility] Info Instructions
[2025-01-02] MEDS: DEXAMETHASONE 10 MG/ML PF PO (08:33)
[2025-01-02] MEDS: ONDANSETRON ODT 4 MG TAB PO (08:33)
[2025-01-02 08:38] LABS: PCR FLU A Negative PCR FLU A (Negative); PCR FLU B Negative PCR FLU B (Negative); PCR RSV Negative PCR RSV (Negative); SARS PCR* POSITIVE SARS-CoV-2 (Negative)
--- OUTSIDE RECORDS SUMMARY | 2025-01-02 08:40 | XMS_ITS | Clinical Summary ---
Author Organization [facility] Address [address] [place] [id number] Care Team Providers Care Grounds Caretaker Name Role Phone Trinity Joseph DO Primary Care Provider [phone] Allergies Active Allergy Reactions Criticality Noted Date [...] 09/17/2023 Overview (09/17/2023): Placed December 2021 in [place] PCOS (polycystic ovarian syndrome) 09/17/2023 Overview (09/17/2023): Irregular menses. US with bilateral polycystic ovaries in November 2018. 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 ); Derm Problem (eczema flare up, would like cream prescribed.) 11/23/2024 Telephone [facility] [address] [place] [address] Ron Rodrigez MD Referral (ANGELIQUE) [...] on file Legal Sex Female 8:36 AM MACROECONOMICS PROFESSOR Gender Identity Not on file Sexual Orientation [...] 162.6 cm (5' 4) 09/17/2023 3:06 PM MACROECONOMICS PROFESSOR Body Mass Index 51.19 09/17/2023 3:06 PM MACROECONOMICS PROFESSOR Plan of Treatment Upcoming Encounters Date Type Department Care Team (Late st Contact Info) Description 01/09/2025 3:30 PM CDT Office Visit [facility] [address] [place] [phone] Ron Rodrigez MD [address] [facility] [address] [place], [place] [id number] Health Maintenance Due Date Last Done Comments [...] ANTI HIV 1/2 Routine 09/17/2023 4:27 PM MACROECONOMICS PROFESSOR Routine screening for STI (sexually transmitted infection) ANTI HCV Routine 09/17/2023 4:27 PM MACROECONOMICS PROFESSOR Routine screening for STI (sexually transmitted infection) CRYSTAL SLICER THIN PREP PAP SCREEN IMAGED Routine 09/17/2023 3:50 PM MACROECONOMICS PROFESSOR Screening for malignant neoplasm of cervix from Last 3 Months or Most Recently Relevant to Health Maintenance Results * ANTI HCV (09/17/2023 4:27 PM MACROECONOMICS PROFESSOR) HEPATITIS C ANTIBODY Non-Reacti ve Non-React kraig 09/20/2023 2:00 PM MACROECONOMICS PROFESSOR [facility] Comment:Please note, per www .CDC.gov: If a patient is known to be at high risk of HCV infection, or is symptomatic, and the physician's suspicion of HCV infection is high, HCV RNA testing is often employed and is of diagnostic value, even after an initial negative anti-HCV test result. Blood BLOOD SPECIMEN / Unknown Venipuncture / Unknown 09/17/2023 4:27 PM MACROECONOMICS PROFESSOR 09/17/2023 4:28 PM MACROECONOMICS PROFESSOR Trinity Joseph DO SEND OUTS Final Resu lt Performing Organization Address [facility]/ZIP Co de Phone Number [facility] [address] [place] [address], * ANTI HIV 1/2 (09/17/2023 4:27 PM MACROECONOMICS PROFESSOR) HIV-1/HIV-2 SCREEN Non-Reacti ve Non-Reacti ve 09/20/2023 2:00 PM MACROECONOMICS PROFESSOR [facility] Comment:HIV-1 p24 and HIV-1/ HIV-2 Ab Not Detected. Blood BLOOD SPECIMEN / Unknown Venipuncture / Unknown 09/17/2023 4:27 PM MACROECONOMICS PROFESSOR 09/17/2023 4:28 PM MACROECONOMICS PROFESSOR Trinity Joseph DO SEND OUTS Final Resu lt Performing Organization Address City/[facility]/ZIP Co de Phone Number [facility] [address] [place] [id number], [place] * CRYSTAL SLICER THIN PREP PAP SCREEN IMAGED [[id number]] (09/17/2023 3:50 PM MACROECONOMICS PROFESSOR) Case Report Gynecologic Cytology Report Case: [id number] Authorizing Provider: Trinity Joseph DO Collected: 09/17/2023 1550 Ordering Location: [facility] Received: 09/17/2023 1619 Clinic First Screen: Leta Zuniga Specimen: CRYSTAL SLICER ThinPrep Vial Screening, Cervical 09/22/2023 3:24 PM MACROECONOMICS PROFESSOR [facility] INTERPRETATION/ RESULT NEGATIVE FOR INTRAEPITHELIAL LESION OR MALIGNANCY (NIL) (none) 09/22/2023 3:24 PM MACROECONOMICS PROFESSOR [facility] [employer] [facility] ENTRAL LABOR[facility] at 1524 MACROECONOMICS PROFESSOR SPECIMEN ADEQUACY Satisfactory for evaluation Endocervical component present 09/22/2023 3:24 PM MACROECONOMICS PROFESSOR [facility] [employer] [facility] HPV REQUEST HPV and PAP 09/22/2023 3:24 PM MACROECONOMICS PROFESSOR [facility] [employer] [facility] Date of LMP N/A 09/22/2023 3:24 PM MACROECONOMICS PROFESSOR [facility] [employer] [facility] Last Pap Date 2020 09/22/2023 3:24 PM MACROECONOMICS PROFESSOR [facility] Last Pap Result NIL 3:24 PM MACROECONOMICS PROFESSOR [facility] Abnormal Pap or [place] Bx in last 5 years No 09/22/2023 3:24 PM MACROECONOMICS PROFESSOR [facility] [employer] [facility]AL [facility] Menstrual Status Hormonally Suppressed 09/22/2023 3:24 PM MACROECONOMICS PROFESSOR [facility] ENTRAL LABORATORY Stamping [place] Bx Done Today No 09/22/2023 3:24 PM MACROECONOMICS PROFESSOR [facility] ENTRAL LABORATORY Additional Information None given 09/22/2023 3:24 PM MACROECONOMICS PROFESSOR [facility] Comment: Cytology is screened at [facility] [employer] [facility], Central Laboratory - [address] [place] [address] and [facility] Laboratory - [address] [place] [address] and [facility] Laboratory - [address] [facility] [place] [address] Interpreted at [facility] [employer] [facility] Central Laboratory - [address], [place] [address] Automated Review Successful 09/22/2023 3:24 PM MACROECONOMICS PROFESSOR [facility]- ENTRAL LABORATORY Comment:Specimen processed s uccessfully by automated gate agent device, [email or web address], [email or web address] ANCILLARY TESTING CRYSTAL SLICER HPV Ordered, Please see separate report 09/22/2023 3:24 PM MACROECONOMICS PROFESSOR [facility]- ENTRAL LABORATORY Note The pap test is [...] pre-malignant and malignant lesions. 09/22/2023 3:24 PM MACROECONOMICS PROFESSOR [facility] ENTRAL LABORATORY Other (Cervical) Non-Blood / Unknown 09/17/2023 3:50 PM MACROECONOMICS PROFESSOR 09/17/2023 4:19 PM MACROECONOMICS PROFESSOR us Trinity Joseph DO PATHOLOGY/CYTOLOGY Final R esult [facility] [address] [place] [address], [place] from Last 3 Months or Most Recently Relevant to Health Maintenance Care Teams Grounds Caretaker Relationship Specialty Start Date End Date Trinity Joseph DO [address] [place] [address] PCP - General Family Practice 08/09/23
== END 2025-01-02 09:07 | disposition home or self-care (01) ==
PROVIDERS: Emergency Provider Student in an Organized Health Care Education/Training Program; PCP Family Medicine
DX: U07.1 COVID-19 (principal); J02.9 Acute pharyngitis, unspecified
CPT/HCPCS: 87631; 87651; 99283; 99284; A9270; J1100

== ENCOUNTER 2025-04-11 14:30 | Outpatient (RCR) | payer MEDICAID, SELFPAY | END 2025-08-09 23:59 | disposition home or self-care (01) | PROVIDERS: PCP Family Medicine; Visit Provider Physician Assistant | DX: M54.50 Low back pain, unspecified (principal); Z51.89 Encounter for other specified aftercare | CPT/HCPCS: 97110; 97140; 97161 ==